=== PATIENT | male | born 1955 | race African-American/Black ===

== ENCOUNTER 2017-03-25 05:41 | Emergency (ER) | payer MEDICAID ==
[~2017-03-25] VITALS: Ht 198.1 cm; Wt 102.5 kg
[2017-03-25] MEDS ORDERED: OXYCODONE HCL 20MG TABLET SR 12HR PO ONE (06:30)
[2017-03-25] MEDS ORDERED: BACLOFEN 10MG TABLET PO ONE (06:30)
[2017-03-25 06:58] LABS: BASOPHILS % 0.8 % (0.0-2.0); EOSINOPHILS % 4.5 % (0.0-5.0); HEMATOCRIT. 36.2 % (42.0-52.0); HEMOGLOBIN. 12.2 g/dL (14.0-18.0); LYMPHOCYTES % 39.3 % (20.0-50.0); MEAN CORPUSCULAR HEMOGLOBIN 33.6 pg (28.0-32.0); MEAN CORPUSCULAR VOLUME 99.4 fL (80.0-94.0); MEAN PLATELET VOLUME 8.1 fl (7.4-10.4); MONOCYTES % 9.2 % (2.0-8.0); NEUTROPHILS % 46.2 % (40.0-76.0); PLATELET 173 x1000/uL (130-400); RED BLOOD CELL COUNT 3.64 mill/uL (4.7-6.1); RED CELL DISTRIBUTION WIDTH 15.5 % (11.6-14.6)
[2017-03-25 07:03] LABS: INR 0.9; PROTHROMBIN TIME 9.7 sec (9.4-11.6)
[2017-03-25 07:11] LABS: CARBON DIOXIDE 25 mEq/L (21-32); CHLORIDE 106 mEq/L (98-107); TROPONIN I < 0.02 ng/mL (0.00-0.04)
[2017-03-25 07:33] VITALS: BP 137/74
== END 2017-03-25 08:13 | disposition home or self-care (01) ==
LOC: ER 06:44
DX: G89.4 Chronic pain syndrome (principal); R21 Rash and other nonspecific skin eruption; F17.200 Nicotine dependence, unspecified, uncomplicated; I10 Essential (primary) hypertension
CPT/HCPCS: 36415; 80053; 83880; 84484; 85025; 85610; 93005; 99285; Z7610

== ENCOUNTER 2017-05-07 17:37 | Emergency (ER) | payer MEDICAID ==
[~2017-05-07] VITALS: Ht 198.1 cm; Wt 103.0 kg
[2017-05-07 17:57] VITALS: BP 155/106
== END 2017-05-07 21:41 | disposition left against medical advice (07) ==
LOC: ER 17:45
DX: R50.9 Fever, unspecified (principal); Z53.21 Procedure and treatment not carried out due to patient leaving prior to being seen by health care provider

== ENCOUNTER 2017-05-08 05:40 | Emergency (ER) | payer MEDICAID ==
[~2017-05-08] VITALS: Ht 198.1 cm; Wt 103.0 kg
[2017-05-08] MEDS ORDERED: MORPHINE SULFATE 4 MG/ML CPJ (NOT FOR IM USE) IV STA (06:46)
[2017-05-08] MEDS ORDERED: ONDANSETRON HCL 4MG/2ML VIAL IV STA (06:46)
[2017-05-08] MEDS ORDERED: CLONIDINE 0.1MG TABLET PO ONE (07:00)
[2017-05-08 07:05] LABS: BASOPHILS % 0.7 % (0.0-2.0); EOSINOPHILS % 1.1 % (0.0-5.0); HEMOGLOBIN. 12.4 g/dL (14.0-18.0); MEAN CORPUSCULAR VOLUME 100.9 fL (80.0-94.0); MONOCYTES % 7.8 % (2.0-8.0); NEUTROPHILS % 71.4 % (40.0-76.0); PLATELET 187 x1000/uL (130-400); RED BLOOD CELL COUNT 3.66 mill/uL (4.7-6.1); RED CELL DISTRIBUTION WIDTH 15.1 % (11.6-14.6)
[2017-05-08 07:16] LABS: INR 0.9; PROTHROMBIN TIME 9.6 sec (9.4-11.6)
[2017-05-08 07:18] LABS: CARBON DIOXIDE 28 mEq/L (21-32); CHLORIDE 104 mEq/L (98-107)
[2017-05-08] MEDS ORDERED: HYDROCODONE/ACETAMINOPHEN 5/325MG TABLET PO ONE (08:30)
[2017-05-08 08:48] VITALS: BP 135/77
== END 2017-05-08 08:50 | disposition home or self-care (01) ==
LOC: ER 05:40
DX: S52.615A Nondisplaced fracture of left ulna styloid process, initial encounter for closed fracture (principal); M54.5 Low back pain; M54.2 Cervicalgia; F17.200 Nicotine dependence, unspecified, uncomplicated; I10 Essential (primary) hypertension; V89.9XXA Person injured in unspecified vehicle accident, initial encounter; Y93.89 Activity, other specified; Y92.89 Other specified places as the place of occurrence of the external cause; Y99.8 Other external cause status
CPT/HCPCS: 29105; 36415; 72070; 72100; 73080; 80053; 83605; 85025; 85610; 93005; 96374; 96375; 99285; J2270; J2405; Z7610; A4565

== ENCOUNTER 2017-06-16 09:12 | Emergency (ER) | payer MEDICAID ==
[~2017-06-16] VITALS: Ht 198.1 cm; Wt 105.0 kg
[2017-06-16] MEDS ORDERED: HYDROCODONE/ACETAMINOPHEN 10/325MG TABLET PO ONE (10:30)
[2017-06-16] MEDS ORDERED: MORPHINE SULFATE 10 MG/ML CPJ IM ONE (10:45)
[2017-06-16 11:15] VITALS: BP 169/105
== END 2017-06-16 11:23 | disposition home or self-care (01) ==
LOC: ER 09:37
DX: R07.9 Chest pain, unspecified (principal); M54.2 Cervicalgia; M54.9 Dorsalgia, unspecified; M25.522 Pain in left elbow; I10 Essential (primary) hypertension
CPT/HCPCS: 93005; 99283; Z7610

== ENCOUNTER 2017-11-25 16:17 | Emergency (ER) | payer MEDICAID, OTHER ==
[~2017-11-25] VITALS: Ht 198.1 cm; Wt 105.0 kg
[2017-11-25] MEDS ORDERED: METHYLPREDNISOLONE SOD SUCC 125 MG/2 ML VIAL IV ONE ×2 (16:45→17:15)
[2017-11-25] MEDS ORDERED: DIPHENHYDRAMINE 50MG CAPSULE PO ONE (16:45)
[2017-11-25] MEDS ORDERED: DIPHENHYDRAMINE 50MG/ML VIAL IV ONE (17:15)
[2017-11-25 19:32] VITALS: BP 157/90
== END 2017-11-25 19:46 | disposition home or self-care (01) ==
LOC: ER 16:17
DX: T78.40XA Allergy, unspecified, initial encounter (principal); I10 Essential (primary) hypertension; X58.XXXA Exposure to other specified factors, initial encounter
CPT/HCPCS: 93005; 96374; 96375; 96376; 99284; J1200; J2930; J7030; Z7610; Q0163

== ENCOUNTER 2017-12-24 18:07 | Emergency (ER) | payer MEDICAID ==
[~2017-12-24] VITALS: Ht 195.6 cm; Wt 120.0 kg
[2017-12-24 18:11] VITALS: BP 113/71
[2017-12-24] MEDS ORDERED: LIDOCAINE 5% PATCH TOP STA (18:28)
[2017-12-24] MEDS ORDERED: SODIUM CHLORIDE 0.9% 1,000 ML IV ONE (18:28)
[2017-12-24] MEDS ORDERED: ACETAMINOPHEN 325MG TABLET PO ONE (18:30)
[2017-12-24] MEDS ORDERED: IBUPROFEN 400MG TABLET PO ONE (18:30)
== END 2017-12-25 00:15 | disposition left against medical advice (07) ==
LOC: ER 20:30
DX: R07.81 Pleurodynia (principal); I10 Essential (primary) hypertension; Z98.890 Other specified postprocedural states
CPT/HCPCS: 99281; J7030

== ENCOUNTER 2018-05-04 07:31 | Emergency (ER) | payer MEDICAID ==
[~2018-05-04] VITALS: Ht 198.1 cm; Wt 105.0 kg
[2018-05-04] MEDS ORDERED: QUET25TA PO (07:41)
[2018-05-04] MEDS ORDERED: TETANUS, DIPHTHERIA, PERTUSSIS VAC/PF 0.5ML (>7YR OLD) IM ONE (10:00)
[2018-05-04] MEDS ORDERED: HYDROCODONE/ACETAMINOPHEN 5/325MG TABLET PO ONE (10:30)
[2018-05-04 10:33] VITALS: BP 186/98
== END 2018-05-04 12:40 | disposition home or self-care (01) ==
LOC: ER 08:33
DX: S09.8XXA Other specified injuries of head, initial encounter (principal); M54.2 Cervicalgia; I95.9 Hypotension, unspecified; M25.512 Pain in left shoulder; M79.641 Pain in right hand; M25.561 Pain in right knee; W10.8XXA Fall (on) (from) other stairs and steps, initial encounter; Y93.89 Activity, other specified; Y92.89 Other specified places as the place of occurrence of the external cause; Y99.8 Other external cause status; Z98.890 Other specified postprocedural states
CPT/HCPCS: 70450; 72100; 72125; 73030; 73130; 73562; 90471; 90715; 99284; X7700; Z7610

== ENCOUNTER 2019-12-18 20:44 | Inpatient (IN) | payer MEDICAID, OTHER ==
[~2019-12-18] VITALS: Ht 198.1 cm; Wt 96.2 kg
[~2019-12-18 20:44] MED LIST: QUET25TA PO
[2019-12-18 22:00] LABS: CHLORIDE 103 mEq/L (98-107)
[2019-12-18 22:01] LABS: BASOPHILS % 1.4 % (0.0-2.0); EOSINOPHILS % 0.6 % (0.0-5.0); HEMATOCRIT. 43.8 % (42.0-52.0); HEMOGLOBIN. 14.9 g/dL (14.0-18.0); LYMPHOCYTES % 22.4 % (20.0-50.0); MEAN CORPUSCULAR HEMOGLOBIN 36.1 pg (28.0-32.0); MEAN CORPUSCULAR VOLUME 106.2 fL (80.0-94.0); MEAN PLATELET VOLUME 7.6 fl (7.4-10.4); MONOCYTES % 8.4 % (2.0-8.0); NEUTROPHILS % 67.2 % (40.0-76.0); PLATELET 141 x1000/uL (130-400); RED BLOOD CELL COUNT 4.13 mill/uL (4.7-6.1); RED CELL DISTRIBUTION WIDTH 15.3 % (11.6-14.6)
[2019-12-18 22:02] LABS: INR 0.9
[2019-12-18 23:25] LABS: CLARITY URINE CLEAR (CLEAR); COLOR URINE DARK YELLOW (YELLOW); KETONES URINE 1+ (NEGATIVE); LEUKOCYTE ESTERASE URINE 1+ (NEGATIVE); NITRITE URINE NEGATIVE (NEGATIVE); OCCULT BLOOD URINE TRACE (NEGATIVE); PH URINE 7.5 (4.5-8.0); PROTEIN URINE 1+ (NEGATIVE); SPECIFIC GRAVITY URINE 1.025 (1.005-1.030)
[2019-12-19] MEDS ORDERED: IOHEXOL-350 100 ML BOTTLE ONE (00:40)
[2019-12-19] MEDS ORDERED: ENOXAPARIN 100MG/ML SYR SUBCUT NR (01:30)
[2019-12-19 02:03] LABS: INR 0.9
[2019-12-19] MEDS ORDERED: KETOROLAC 15MG/ML VIAL IV ONE (02:45)
[2019-12-19] MEDS ORDERED: MORPHINE SULFATE 4 MG/ML CPJ (NOT FOR IM USE) IV PRN (05:30)
[2019-12-19] MEDS ORDERED: ACETAMINOPHEN 325MG TABLET PO PRN ×2 (09:00→09:15)
[2019-12-19] MEDS ORDERED: HYDRALAZINE 20MG/ML VIAL IV NR ×2 (09:00→09:30)
[2019-12-19] MEDS ORDERED: AZITHROMYCIN 500 MG TABLET PO NR (09:30)
[2019-12-19 09:52] VITALS: BP 214/94
[2019-12-19] MEDS ORDERED: LORAZEPAM 2MG/ML CPJ IV PRN (10:30)
[2019-12-19] MEDS ORDERED: AMLODIPINE 5MG TABLET PO NR (10:30)
[2019-12-19 10:40] VITALS: BP 164/94
[2019-12-19] MEDS ORDERED: CEFTRIAXONE 1 G PREMIX 50 ML IV SCH (11:00)
[2019-12-19] MEDS: MULTIVITAMINS,THER W-MINERALS TABLET PO SCH (11:00)
[2019-12-19] MEDS: THIAMINE HCL 100MG TABLET PO SCH (11:00)
[2019-12-19] MEDS: FOLIC ACID 1MG TABLET PO SCH (11:00)
[2019-12-19 12:16] VITALS: BP 196/87
[2019-12-19] MEDS: PANTOPRAZOLE SODIUM 40 MG/VIAL IV SCH (12:21)
[2019-12-19] MEDS: HYDROCODONE/ACETAMINOPHEN 5/325MG TABLET PO PRN ×2 (12:21→18:15)
[2019-12-19] MEDS ORDERED: HYDRALAZINE HCL 50MG TABLET PO NR (12:30)
[2019-12-19] MEDS: ENOXAPARIN 100MG/ML SYR SUBCUT SCH (13:48)
[2019-12-19 14:38] LABS: *BARBITURATES SCREEN URINE NEGATIVE (NEGATIVE); *BENZODIAZEPINES SCREEN URINE NEGATIVE (NEGATIVE); *COCAINE SCREEN URINE PRESUMTIVE POSITIVE (NEGATIVE)
[2019-12-19 14:39] LABS: *AMPHETAMINES SCREEN URINE PRESUMTIVE POSITIVE (NEGATIVE); OPIATES URINE SCREEN NEGATIVE (NEGATIVE); PHENCYCLIDINE URINE SCREEN NEGATIVE (NEGATIVE)
[2019-12-19 14:41] LABS: CANNABINOID URINE SCREEN NEGATIVE (NEGATIVE); METHADONE URINE SCREEN NEGATIVE (NEGATIVE)
[2019-12-19 16:36] VITALS: BP 168/93
[2019-12-19] MEDS: CEFTRIAXONE 1 G PREMIX 50 ML IV SCH (17:52)
[2019-12-19 18:14] LABS: LDL CHOLESTEROL 36 mg/dL (5-100)
[2019-12-19 18:16] LABS: HDL CHOLESTEROL 92 mg/dL (40-59)
[2019-12-19] MEDS ORDERED: LOSARTAN POTASSIUM 50 MG TABLET PO NR (19:00)
[2019-12-19 20:00] VITALS: BP 140/77
[2019-12-19] MEDS ORDERED: HYDRALAZINE HCL 50MG TABLET PO SCH (21:00)
[2019-12-19] MEDS: AMLODIPINE 5MG TABLET PO SCH (21:45)
[2019-12-19] MEDS: HYDRALAZINE HCL 100MG TABLET PO SCH (21:45)
[2019-12-19 22:02] LABS: *AMPHETAMINES SCREEN URINE PRESUMTIVE POSITIVE (NEGATIVE); *BARBITURATES SCREEN URINE NEGATIVE (NEGATIVE); *BENZODIAZEPINES SCREEN URINE NEGATIVE (NEGATIVE); *COCAINE SCREEN URINE PRESUMTIVE POSITIVE (NEGATIVE); CANNABINOID URINE SCREEN NEGATIVE (NEGATIVE); METHADONE URINE SCREEN NEGATIVE (NEGATIVE); OPIATES URINE SCREEN PRESUMTIVE POSITIVE (NEGATIVE); PHENCYCLIDINE URINE SCREEN NEGATIVE (NEGATIVE)
[2019-12-20] VITALS: BP 138/74
[2019-12-20] MEDS: HYDROCODONE/ACETAMINOPHEN 5/325MG TABLET PO PRN ×2 (00:08→22:10)
[2019-12-20] MEDS: ENOXAPARIN 100MG/ML SYR SUBCUT SCH ×2 (02:00→13:22)
[2019-12-20 04:00] VITALS: BP 145/70
[2019-12-20 08:00] VITALS: BP 137/70
[2019-12-20] MEDS ORDERED: AZITHROMYCIN 250 MG TABLET PO SCH (09:00)
[2019-12-20] MEDS: AMLODIPINE 5MG TABLET PO SCH ×2 (09:22→21:00)
[2019-12-20] MEDS: PANTOPRAZOLE SODIUM 40 MG/VIAL IV SCH (09:22)
[2019-12-20] MEDS: MULTIVITAMINS,THER W-MINERALS TABLET PO SCH (09:22)
[2019-12-20] MEDS: HYDRALAZINE HCL 100MG TABLET PO SCH ×2 (09:23→21:00)
[2019-12-20] MEDS: THIAMINE HCL 100MG TABLET PO SCH (09:23)
[2019-12-20] MEDS: FOLIC ACID 1MG TABLET PO SCH (09:23)
[2019-12-20] MEDS ORDERED: THIA100T88 MT (10:27)
[2019-12-20] MEDS ORDERED: FOLI-43 PO (10:27)
[2019-12-20] MEDS ORDERED: HYDR100T26 PO (10:27)
[2019-12-20] MEDS ORDERED: AMLO5TAB88 PO (10:28)
[2019-12-20] MEDS ORDERED: KETOROLAC 30MG/ML VIAL IV PRN (10:45)
[2019-12-20] MEDS ORDERED: IPRATROPIUM/ALBUTEROL 0.5-3(2.5)MG/3ML NEB HHN PRN ×2 (13:00→15:30)
[2019-12-20 16:00] VITALS: BP 123/59
[2019-12-20] MEDS: CEFTRIAXONE 1 G PREMIX 50 ML IV SCH (17:11)
[2019-12-20 20:00] VITALS: BP 109/59
[2019-12-20] MEDS ORDERED: QUETIAPINE FUMARATE 25MG TABLET PO SCH (21:00)
[2019-12-21] MEDS ORDERED: FAMOTIDINE 20MG TABLET PO SCH (09:00)
== END 2019-12-20 23:40 | disposition left against medical advice (07) | DRG 134 ==
LOC: ER 20:44 → 7EST 12-19 01:23 → ENRESERV 12-19 07:48 → ER 12-19 08:30 → 5WST 12-20 04:45
PROVIDERS: ADMIT Internal Medicine; ATTEND Internal Medicine
DX: I26.99 Other pulmonary embolism without acute cor pulmonale (principal); E44.1 Mild protein-calorie malnutrition; R17 Unspecified jaundice; J43.9 Emphysema, unspecified; K21.9 Gastro-esophageal reflux disease without esophagitis; I10 Essential (primary) hypertension; R00.1 Bradycardia, unspecified; F10.10 Alcohol abuse, uncomplicated; Y90.9 Presence of alcohol in blood, level not specified; R74.0 Nonspecific elevation of levels of transaminase and lactic acid dehydrogenase [LDH]; D72.819 Decreased white blood cell count, unspecified; G89.4 Chronic pain syndrome; M54.10 Radiculopathy, site unspecified; M54.14 Radiculopathy, thoracic region; F17.210 Nicotine dependence, cigarettes, uncomplicated; Z20.828 Contact with and (suspected) exposure to other viral communicable diseases; Z53.29 Procedure and treatment not carried out because of patient's decision for other reasons; Z98.1 Arthrodesis status; Z79.899 Other long term (current) drug therapy; Z86.718 Personal history of other venous thrombosis and embolism; Z68.24 Body mass index [BMI] 24.0-24.9, adult; Z71.41 Alcohol abuse counseling and surveillance of alcoholic
CPT/HCPCS: 36415; 71045; 71275; 80053; 80061; 80305; 80307; 80353; 81003; 82728; 83615; 83880; 84145; 84443; 84484; 85025; 86140; 93005; 93306; 99291; C9113; J0360; J0696; J1650; J1885; J2270; Q9967; U0003-CS

== ENCOUNTER 2020-05-30 15:36 | Emergency (ER) | payer OTHER ==
[~2020-05-30] VITALS: Ht 198.1 cm; Wt 102.0 kg
[~2020-05-30 15:36] MED LIST changes: +AMLO5TAB88 PO; +FOLI-43 PO; +HYDR100T26 PO; +THIA100T88 MT
[2020-05-30] MEDS ORDERED: MORPHINE SULFATE 4 MG/ML CPJ (NOT FOR IM USE) IV STA (18:21)
[2020-05-30] MEDS ORDERED: ONDANSETRON HCL 4MG/2ML INJ IV STA (18:21)
[2020-05-30 18:29] LABS: BASOPHILS % 0.7 % (0.0-2.0); EOSINOPHILS % 2.4 % (0.0-5.0); HEMATOCRIT. 38.4 % (42.0-52.0); HEMOGLOBIN. 12.9 g/dL (14.0-18.0); LYMPHOCYTES % 34.4 % (20.0-50.0); MEAN CORPUSCULAR HEMOGLOBIN 36.8 pg (28.0-32.0); MEAN CORPUSCULAR VOLUME 109.3 fL (80.0-94.0); MONOCYTES % 8.8 % (2.0-8.0); NEUTROPHILS % 53.7 % (40.0-76.0); PLATELET 247 x1000/uL (130-400); RED BLOOD CELL COUNT 3.52 mill/uL (4.7-6.1); RED CELL DISTRIBUTION WIDTH 15.5 % (11.6-14.6)
[2020-05-30 18:34] LABS: CHLORIDE 108 mEq/L (98-107)
[2020-05-30 18:37] LABS: PROTHROMBIN TIME 10.3 sec (9.6-11.0)
[2020-05-30] MEDS ORDERED: SODIUM CHLORIDE 0.9% 1000ML BAG (SEPSIS BOLUS) IV NR (20:30)
[2020-05-30] MEDS ORDERED: VANCOMYCIN 1 G PREMIX 200 ML IV NR (20:30)
[2020-05-30] MEDS ORDERED: PIPERACILLIN/TAZ 3.375G PREMIX 50 ML IV NR (20:30)
[2020-05-30] MEDS ORDERED: PIPERACILLIN/TAZOBACTAM 3.375 G in DEXT 5% WATER 100 ML IV SCH (21:15)
[2020-05-30 22:00] VITALS: BP 154/75
[2020-05-30 23:17] LABS: CLARITY URINE CLEAR (CLEAR); COLOR URINE YELLOW (YELLOW); KETONES URINE NEGATIVE (NEGATIVE); LEUKOCYTE ESTERASE URINE TRACE (NEGATIVE); NITRITE URINE NEGATIVE (NEGATIVE); OCCULT BLOOD URINE NEGATIVE (NEGATIVE); PH URINE 7.5 (4.5-8.0); PROTEIN URINE NEGATIVE (NEGATIVE); SPECIFIC GRAVITY URINE 1.012 (1.005-1.030); UROBILINOGEN URINE 0.2 E.U./dL (0.2-1.0)
== END 2020-05-31 00:21 | disposition left against medical advice (07) ==
LOC: ER 16:07 → CANBEDREQ 05-31 01:54
DX: A41.9 Sepsis, unspecified organism (principal); R65.20 Severe sepsis without septic shock; J18.9 Pneumonia, unspecified organism; R00.1 Bradycardia, unspecified; M54.5 Low back pain; I10 Essential (primary) hypertension; F17.210 Nicotine dependence, cigarettes, uncomplicated; Z71.6 Tobacco abuse counseling; Z98.1 Arthrodesis status; Z99.3 Dependence on wheelchair
CPT/HCPCS: 36415; 71045; 72125; 80053; 81003; 82962; 83605; 83880; 84145; 84484; 85025; 85610; 87040; 87086; 93005; 96361; 96365; 96367; 96375; 99285; 99406; J2270; J2405; J2543; J3370; J7060

== ENCOUNTER 2020-08-17 12:02 | Emergency (ER) | payer OTHER ==
[~2020-08-17] VITALS: Ht 198.1 cm; Wt 102.0 kg
[2020-08-17 14:31] LABS: BASOPHILS % 0.6 % (0.0-2.0); EOSINOPHILS % 1.3 % (0.0-5.0); HEMATOCRIT. 38.5 % (42.0-52.0); HEMOGLOBIN. 12.7 g/dL (14.0-18.0); LYMPHOCYTES % 26.9 % (20.0-50.0); MEAN CORPUSCULAR HEMOGLOBIN 35.8 pg (28.0-32.0); MEAN CORPUSCULAR VOLUME 108.4 fL (80.0-94.0); MEAN PLATELET VOLUME 8.9 fl (7.4-10.4); NEUTROPHILS % 61.2 % (40.0-76.0); PLATELET 78 x1000/uL (130-400); RED BLOOD CELL COUNT 3.55 mill/uL (4.7-6.1); RED CELL DISTRIBUTION WIDTH 16.8 % (11.6-14.6)
[2020-08-17 14:42] LABS: CHLORIDE 103 mEq/L (98-107)
[2020-08-17] MEDS ORDERED: MORPHINE SULFATE 10 MG/ML CPJ IV ONE (15:00)
[2020-08-17] MEDS ORDERED: MORPHINE SULFATE 10 MG/ML CPJ IV NR (15:15)
[2020-08-17] MEDS ORDERED: ENOXAPARIN 120MG/0.8ML SYR SUBCUT ONE (17:45)
[2020-08-17 18:01] VITALS: BP 153/65
[2020-08-17] MEDS ORDERED: IOHEXOL-350 100 ML BOTTLE ONE (23:15)
== END 2020-08-17 18:03 | disposition home or self-care (01) ==
LOC: ER 12:02
DX: R07.89 Other chest pain (principal); I82.402 Acute embolism and thrombosis of unspecified deep veins of left lower extremity; M54.2 Cervicalgia; I10 Essential (primary) hypertension; Z98.890 Other specified postprocedural states
CPT/HCPCS: 36415; 71045; 71275; 72125; 80053; 83880; 84484; 85025; 93005; 93970; 96374; 99285; J1650; J2270; Q9967

== ENCOUNTER 2021-01-11 15:16 | Emergency (ER) | payer OTHER ==
[~2021-01-11] VITALS: Ht 193 cm; Wt 100.0 kg
[2021-01-11] MEDS ORDERED: ACETAMINOPHEN WITH CODEINE 300/30MG TABLET PO STA (16:29)
[2021-01-11 17:07] LABS: BASOPHILS % 0.8 % (0.0-2.0); EOSINOPHILS % 0.1 % (0.0-5.0); HEMATOCRIT. 37.5 % (42.0-52.0); HEMOGLOBIN. 12.7 g/dL (14.0-18.0); LYMPHOCYTES % 7.4 % (20.0-50.0); MEAN CORPUSCULAR HEMOGLOBIN 36.8 pg (28.0-32.0); MEAN CORPUSCULAR VOLUME 108.5 fL (80.0-94.0); MEAN PLATELET VOLUME 8.5 fl (7.4-10.4); MONOCYTES % 6.3 % (2.0-8.0); NEUTROPHILS % 85.4 % (40.0-76.0); PLATELET 95 x1000/uL (130-400); RED BLOOD CELL COUNT 3.46 mill/uL (4.7-6.1); RED CELL DISTRIBUTION WIDTH 16.9 % (11.6-14.6)
[2021-01-11 17:13] LABS: CHLORIDE 100 mEq/L (98-107)
[2021-01-11] MEDS ORDERED: TAMS-11 MT (19:26)
[2021-01-11] MEDS ORDERED: CIPR-264 MT (19:27)
[2021-01-12 00:05] VITALS: BP 149/75
== END 2021-01-12 00:20 | disposition home or self-care (01) ==
LOC: ER 15:16
DX: N30.00 Acute cystitis without hematuria (principal); N40.0 Benign prostatic hyperplasia without lower urinary tract symptoms; F17.200 Nicotine dependence, unspecified, uncomplicated; I10 Essential (primary) hypertension; Z98.890 Other specified postprocedural states; Z79.899 Other long term (current) drug therapy
CPT/HCPCS: 36415; 74176; 80053; 85025; 99285; Z7610

== ENCOUNTER 2021-03-15 04:50 | Inpatient (IN) | payer MEDICAID, OTHER ==
[~2021-03-15] VITALS: Ht 198.1 cm; Wt 88.0 kg
[~2021-03-15 04:50] MED LIST changes: +CIPR-264 MT; +TAMS-11 MT
[2021-03-15 06:20] LABS: HEMATOCRIT. 35.9 % (42.0-52.0); HEMOGLOBIN. 12.2 g/dL (14.0-18.0); MEAN CORPUSCULAR HEMOGLOBIN 35.4 pg (28.0-32.0); MEAN CORPUSCULAR VOLUME 104.2 fL (80.0-94.0); MEAN PLATELET VOLUME 8.1 fl (7.4-10.4); PLATELET 330 x1000/uL (130-400); RED BLOOD CELL COUNT 3.44 mill/uL (4.7-6.1); RED CELL DISTRIBUTION WIDTH 18.2 % (11.6-14.6)
[2021-03-15 06:26] LABS: CHLORIDE 100 mEq/L (98-107)
[2021-03-15] MEDS ORDERED: CEFTRIAXONE 1 G PREMIX 50 ML IV ONE (07:15)
[2021-03-15] MEDS ORDERED: AZITHROMYCIN 500 MG in DEXT 5% WATER 250 ML IV ONE (07:15)
[2021-03-15] MEDS ORDERED: DEXAMETHASONE 10 MG/ML VIAL IV ONE (07:15)
[2021-03-15] MEDS ORDERED: IPRATROPIUM BROMIDE (0.02%) 0.5MG/2.5ML NEB HHN STA (07:48)
[2021-03-15] MEDS ORDERED: ALBUTEROL (0.083%) 2.5MG/3ML NEB HHN STA (07:48)
[2021-03-15] MEDS ORDERED: ONDANSETRON HCL 4MG/2ML INJ IV ONE (08:00)
[2021-03-15 08:08] LABS: PLATELET ESTIMATE NORMAL
[2021-03-15 08:09] LABS: D-DIMER 14.46 mg/L FEU (<0.50)
[2021-03-15] MEDS ORDERED: HYDROCODONE/ACETAMINOPHEN 5/325MG TABLET PO ONE (08:30)
[2021-03-15 08:45] LABS: BG BASE EXCESS 2.6 mmol/L (-2.0-2.0); BG CARBOXYHEMOGLOBIN 0.9 % (0.5-1.5); BG DEOXYHEMOGLOBIN 9.4 % (0.0-5.0); BG HCO3 ACT 25.6 mmol/L (22.0-26.0); BG METHEMOGLOBIN 0.3 % (0.0-1.5); BG OXYGEN SATURATION 90.5 % (92.0-98.5); BG OXYHEMOGLOBIN 89.4 % (94.0-97.0); BG PCO2 34.4 mmHg (35.0-45.0); BG PO2 58.7 mmHg (75.0-100.0); BG SAMPLE SITE RIGHT RADIAL; BG TOTAL HEMOGLOBIN 12.7 g/dL (12.0-18.0); BG VENT MODE NASAL CANNULA
[2021-03-15] MEDS ORDERED: POTASSIUM CHLORIDE 20MEQ TABLET SR PO ONE (09:15)
[2021-03-15] MEDS ORDERED: ONDANSETRON HCL 4MG/2ML INJ IV PRN (14:15)
[2021-03-15] MEDS ORDERED: ACETAMINOPHEN 325MG TABLET PO PRN (14:15)
[2021-03-15] MEDS: HYDROCODONE/ACETAMINOPHEN 5/325MG TABLET PO PRN ×2 (14:58→21:12)
[2021-03-15] MEDS: ENOXAPARIN 40MG/0.4ML SYR SUBCUT SCH (15:04)
[2021-03-15 16:00] VITALS: BP 112/69
[2021-03-15 20:00] VITALS: BP 101/65
[2021-03-16] VITALS (7 sets, daily range): BP systolic 95–123; BP diastolic 60–74
[2021-03-16] MEDS: HYDROCODONE/ACETAMINOPHEN 5/325MG TABLET PO PRN ×3 (01:45→19:23)
[2021-03-16] MEDS ORDERED: DEXAMETHASONE 4MG TABLET PO SCH (09:00)
[2021-03-16] MEDS: AZITHROMYCIN 250 MG TABLET PO SCH ×2 (09:00→13:55)
[2021-03-16] MEDS ORDERED: CEFTRIAXONE 1,000 MG in DEXTROSE 5% WATER 50 ML IV SCH (09:00)
[2021-03-16] MEDS ORDERED: NALOXONE HCL 0.4MG/ML VIAL IV PRN (12:00)
[2021-03-16] MEDS ORDERED: DEXAMETHASONE 6MG TABLET PO SCH (13:00)
[2021-03-16] MEDS: ENOXAPARIN 40MG/0.4ML SYR SUBCUT SCH (13:54)
[2021-03-16] MEDS ORDERED: IPRATROPIUM/ALBUTEROL 0.5-3(2.5)MG/3ML NEB HHN PRN (16:15)
[2021-03-16 18:41] LABS: BG BASE EXCESS 3.3 mmol/L (-2.0-2.0); BG CARBOXYHEMOGLOBIN 0.3 % (0.5-1.5); BG DEOXYHEMOGLOBIN 10.7 % (0.0-5.0); BG FRACTION INSPIRED OXYGEN 21; BG METHEMOGLOBIN 0.1 % (0.0-1.5); BG OXYGEN SATURATION 89.3 % (92.0-98.5); BG OXYHEMOGLOBIN 88.9 % (94.0-97.0); BG PCO2 37.9 mmHg (35.0-45.0); BG PO2 57.4 mmHg (75.0-100.0); BG SAMPLE SITE LEFT RADIAL; BG TOTAL HEMOGLOBIN 12.5 g/dL (12.0-18.0); BG VENT MODE ROOM AIR
[2021-03-17] VITALS (27 sets, daily range): BP systolic 101–145; BP diastolic 54–77
[2021-03-17] MEDS: CEFTRIAXONE 1,000 MG in DEXTROSE 5% WATER 50 ML IV SCH (09:46)
[2021-03-17] MEDS: HYDROCODONE/ACETAMINOPHEN 5/325MG TABLET PO PRN ×2 (10:53→21:11)
[2021-03-17] MEDS ORDERED: ENOXAPARIN 100MG/ML SYR SUBCUT SCH (13:00)
[2021-03-17] MEDS ORDERED: POTASSIUM CHLORIDE 20MEQ TABLET SR PO NR (13:15)
[2021-03-17 16:23] LABS: *AMPHETAMINES SCREEN URINE NEGATIVE (NEGATIVE); *BARBITURATES SCREEN URINE NEGATIVE (NEGATIVE); *BENZODIAZEPINES SCREEN URINE NEGATIVE (NEGATIVE); CANNABINOID URINE SCREEN NEGATIVE (NEGATIVE); OPIATES URINE SCREEN PRESUMTIVE POSITIVE (NEGATIVE); PHENCYCLIDINE URINE SCREEN PRESUMTIVE POSITIVE (NEGATIVE)
[2021-03-17 16:24] LABS: *COCAINE SCREEN URINE NEGATIVE (NEGATIVE); METHADONE URINE SCREEN NEGATIVE (NEGATIVE)
[2021-03-17 17:11] LABS: BASOPHILS % 0.2 % (0.0-2.0); EOSINOPHILS % 0.1 % (0.0-5.0); HEMATOCRIT. 31.3 % (42.0-52.0); HEMOGLOBIN. 10.4 g/dL (14.0-18.0); LYMPHOCYTES % 9.9 % (20.0-50.0); MEAN CORPUSCULAR HEMOGLOBIN 35.4 pg (28.0-32.0); MEAN CORPUSCULAR VOLUME 106.3 fL (80.0-94.0); MEAN PLATELET VOLUME 8.2 fl (7.4-10.4); MONOCYTES % 7.1 % (2.0-8.0); NEUTROPHILS % 82.7 % (40.0-76.0); PLATELET 413 x1000/uL (130-400); RED BLOOD CELL COUNT 2.95 mill/uL (4.7-6.1); RED CELL DISTRIBUTION WIDTH 18.2 % (11.6-14.6)
[2021-03-17] MEDS: DOBUTAMINE 250MG PREMIX 250 ML IV PRN (18:17)
[2021-03-17] MEDS ORDERED: MAGNESIUM 2 G PREMIX 50 ML IV NR (19:00)
[2021-03-17 19:52] LABS: INR 1.1; PROTHROMBIN TIME 11.3 sec (9.6-11.0)
[2021-03-17] MEDS ORDERED: HEPARIN 5000 UNITS/ML VIAL IV PRN (23:00)
[2021-03-18] VITALS (93 sets, daily range): BP systolic 79–168; BP diastolic 42–143
[2021-03-18] MEDS ORDERED: HEPARIN 25,000 UNITS PREMIX 250 ML IV SCH (03:00)
[2021-03-18] MEDS: HEPARIN 25,000 UNITS PREMIX 250 ML IV PRN (03:03)
[2021-03-18 05:31] LABS: CHLORIDE 106 mEq/L (98-107)
[2021-03-18 05:33] LABS: BASOPHILS % 0.3 % (0.0-2.0); EOSINOPHILS % 0.2 % (0.0-5.0); HEMATOCRIT. 32.6 % (42.0-52.0); HEMOGLOBIN. 10.7 g/dL (14.0-18.0); LYMPHOCYTES % 22.1 % (20.0-50.0); MEAN CORPUSCULAR HEMOGLOBIN 34.7 pg (28.0-32.0); MEAN PLATELET VOLUME 8.3 fl (7.4-10.4); MONOCYTES % 10.6 % (2.0-8.0); NEUTROPHILS % 66.8 % (40.0-76.0); PLATELET 433 x1000/uL (130-400); RED BLOOD CELL COUNT 3.08 mill/uL (4.7-6.1); RED CELL DISTRIBUTION WIDTH 18.8 % (11.6-14.6)
[2021-03-18 05:40] LABS: CREATINE KINASE 10 IU/L (39-308)
[2021-03-18 05:43] LABS: CREATINE KINASE MB FRACTION < 1.0 ng/mL (0.5-3.6)
[2021-03-18] MEDS: HYDROCODONE/ACETAMINOPHEN 5/325MG TABLET PO PRN ×4 (08:01→22:31)
[2021-03-18 10:19] LABS: BG BASE EXCESS 1.6 mmol/L (-2.0-2.0); BG CARBOXYHEMOGLOBIN 0.1 % (0.5-1.5); BG DEOXYHEMOGLOBIN 4.2 % (0.0-5.0); BG FRACTION INSPIRED OXYGEN 28; BG HCO3 ACT 25.8 mmol/L (22.0-26.0); BG METHEMOGLOBIN 0.3 % (0.0-1.5); BG OXYGEN SATURATION 95.8 % (92.0-98.5); BG OXYHEMOGLOBIN 95.4 % (94.0-97.0); BG PCO2 38.8 mmHg (35.0-45.0); BG PO2 84.9 mmHg (75.0-100.0); BG SAMPLE SITE RIGHT BRACHIAL; BG TOTAL HEMOGLOBIN 11.5 g/dL (12.0-18.0); BG VENT MODE NASAL CANNULA
[2021-03-18 10:19] LABS: PARTIAL THROMBOPLASTIN TIME 32.8 sec (23.4-31.0); PROTHROMBIN TIME 10.9 sec (9.6-11.0)
[2021-03-18] MEDS ORDERED: IPRATROPIUM/ALBUTEROL 0.5-3(2.5)MG/3ML NEB HHN PRN (10:45)
[2021-03-18] MEDS: DOBUTAMINE 250MG PREMIX 250 ML IV PRN ×2 (11:09→18:35)
[2021-03-18] MEDS: AZITHROMYCIN 250 MG TABLET PO SCH (11:24)
[2021-03-18] MEDS: MAGNESIUM OXIDE 400MG TABLET PO SCH (11:25)
[2021-03-18] MEDS: HEPARIN 5000 UNITS/ML VIAL IV PRN ×2 (11:27→21:06)
[2021-03-18] MEDS: CEFTRIAXONE 1,000 MG in DEXTROSE 5% WATER 50 ML IV SCH (12:32)
[2021-03-18] MEDS ORDERED: IOHEXOL-350 100 ML BOTTLE ONE (17:29)
[2021-03-19] VITALS (53 sets, daily range): BP systolic 106–157; BP diastolic 42–120
[2021-03-19] MEDS: DOBUTAMINE 250MG PREMIX 250 ML IV PRN (01:07)
[2021-03-19] MEDS: HEPARIN 25,000 UNITS PREMIX 250 ML IV PRN (01:11)
[2021-03-19] MEDS: HYDROCODONE/ACETAMINOPHEN 5/325MG TABLET PO PRN ×5 (02:18→20:16)
[2021-03-19 05:41] LABS: BASOPHILS % 0.6 % (0.0-2.0); EOSINOPHILS % 0.9 % (0.0-5.0); HEMATOCRIT. 28.4 % (42.0-52.0); HEMOGLOBIN. 9.5 g/dL (14.0-18.0); LYMPHOCYTES % 22.2 % (20.0-50.0); MEAN CORPUSCULAR HEMOGLOBIN 35.3 pg (28.0-32.0); MEAN CORPUSCULAR VOLUME 106.1 fL (80.0-94.0); MEAN PLATELET VOLUME 8.2 fl (7.4-10.4); NEUTROPHILS % 64.3 % (40.0-76.0); PLATELET 400 x1000/uL (130-400); RED BLOOD CELL COUNT 2.67 mill/uL (4.7-6.1); RED CELL DISTRIBUTION WIDTH 18.8 % (11.6-14.6)
[2021-03-19 05:47] LABS: CHLORIDE 98 mEq/L (98-107)
[2021-03-19] MEDS ORDERED: DOBUTAMINE 250MG PREMIX 250 ML IV SCH (06:00)
[2021-03-19] MEDS: DOBUTAMINE 250MG PREMIX 250 ML IV SCH ×2 (07:04→18:34)
[2021-03-19] MEDS: THEOPHYLLINE ANHYDROUS 80 MG/15 ML 120ML PO SCH ×2 (08:06→14:23)
[2021-03-19] MEDS: ASCORBIC ACID 500 MG TABLET PO SCH (08:06)
[2021-03-19] MEDS: ZINC SULFATE 220 MG ( 50 ) CAPSULE PO SCH (08:06)
[2021-03-19] MEDS: MAGNESIUM OXIDE 400MG TABLET PO SCH (08:06)
[2021-03-19] MEDS: CEFTRIAXONE 1,000 MG in DEXTROSE 5% WATER 50 ML IV SCH (08:06)
[2021-03-19] MEDS: AZITHROMYCIN 250 MG TABLET PO SCH (08:08)
[2021-03-19 10:28] LABS: INR 1.1; PARTIAL THROMBOPLASTIN TIME 32.8 sec (23.4-31.0); PROTHROMBIN TIME 11.3 sec (9.6-11.0)
[2021-03-19] MEDS ORDERED: ENOXAPARIN 100MG/ML SYR SUBCUT SCH ×2 (12:00→23:00)
[2021-03-19] MEDS: PANTOPRAZOLE SODIUM 40 MG/VIAL IV SCH (15:16)
[2021-03-20] VITALS (8 sets, daily range): BP systolic 107–159; BP diastolic 59–103
[2021-03-20 06:15] LABS: CHLORIDE 107 mEq/L (98-107)
[2021-03-20 06:36] LABS: TOTAL IRON BINDING CAPACITY 162 ug/dL (250-450)
[2021-03-20 06:37] LABS: THEOPHYLLINE < 2.0 ug/mL (10-20)
[2021-03-20 06:52] LABS: FOLIC ACID (FOLATE) SERUM 4.8 ng/mL (>5.38)
[2021-03-20 07:25] LABS: HEMATOCRIT. 31.4 % (42.0-52.0); HEMOGLOBIN. 10.5 g/dL (14.0-18.0); MEAN CORPUSCULAR HEMOGLOBIN 35.3 pg (28.0-32.0); MEAN PLATELET VOLUME 7.9 fl (7.4-10.4); PLATELET 328 x1000/uL (130-400); RED BLOOD CELL COUNT 2.96 mill/uL (4.7-6.1); RED CELL DISTRIBUTION WIDTH 18.7 % (11.6-14.6)
[2021-03-20] MEDS: AZITHROMYCIN 250 MG TABLET PO SCH (08:57)
[2021-03-20] MEDS: MAGNESIUM OXIDE 400MG TABLET PO SCH (08:57)
[2021-03-20] MEDS: ASCORBIC ACID 500 MG TABLET PO SCH (08:57)
[2021-03-20] MEDS: CEFTRIAXONE 1,000 MG in DEXTROSE 5% WATER 50 ML IV SCH (08:58)
[2021-03-20] MEDS: ZINC SULFATE 220 MG ( 50 ) CAPSULE PO SCH (08:58)
[2021-03-20] MEDS: PANTOPRAZOLE SODIUM 40 MG/VIAL IV SCH (08:58)
[2021-03-20] MEDS: HYDROCODONE/ACETAMINOPHEN 5/325MG TABLET PO PRN (09:06)
[2021-03-20] MEDS ORDERED: DOBUTAMINE 250MG PREMIX 250 ML IV SCH (11:00)
[2021-03-20] MEDS ORDERED: FLUT1DIS3 INH (11:15)
[2021-03-20] MEDS ORDERED: ALBU18HF2 IH (11:15)
[2021-03-20] MEDS ORDERED: XAR15 MT (11:15)
[2021-03-20 16:21] LABS: PLATELET ESTIMATE NORMAL
[2021-03-27] MEDS ORDERED: IPRA3AMP9 NEB (11:32)
== END 2021-03-20 14:55 | disposition home or self-care (01) | DRG 133 ==
LOC: ER 04:50 → EDBEDREQTM 09:19 → EDBEDREQ 09:19 → ENRESERV 15:11 → 7EST 17:38 → MICUSO 03-17 17:20 → 5EST 03-19 14:12
PROVIDERS: ADMIT Internal Medicine; ATTEND Internal Medicine
PROC: 02HV33Z Insertion of Infusion Device into Superior Vena Cava, Percutaneous Approach (ICD-10-PCS; principal; 2021-03-18)
PROC: B548ZZA Ultrasonography of Superior Vena Cava, Guidance (ICD-10-PCS; 2021-03-18)
DX: J96.01 Acute respiratory failure with hypoxia (principal); I26.09 Other pulmonary embolism with acute cor pulmonale; I44.2 Atrioventricular block, complete; E43 Unspecified severe protein-calorie malnutrition; J18.9 Pneumonia, unspecified organism; I49.5 Sick sinus syndrome; G90.8 Other disorders of autonomic nervous system; E87.6 Hypokalemia; I10 Essential (primary) hypertension; N40.0 Benign prostatic hyperplasia without lower urinary tract symptoms; Z20.822 Contact with and (suspected) exposure to COVID-19; F14.10 Cocaine abuse, uncomplicated; F15.10 Other stimulant abuse, uncomplicated; F16.10 Hallucinogen abuse, uncomplicated; E83.42 Hypomagnesemia; J43.9 Emphysema, unspecified; D53.9 Nutritional anemia, unspecified; Z82.49 Family history of ischemic heart disease and other diseases of the circulatory system; Z86.16 Personal history of COVID-19; Z86.711 Personal history of pulmonary embolism; Z86.718 Personal history of other venous thrombosis and embolism; Z87.01 Personal history of pneumonia (recurrent); Z87.891 Personal history of nicotine dependence; Z68.22 Body mass index [BMI] 22.0-22.9, adult; Z98.1 Arthrodesis status
CPT/HCPCS: 36415; 36600; 71045; 71275; 76937; 80048; 80053; 80198; 80305; 82375; 82550; 82553; 82607; 82728; 82746; 82805; 83540; 83550; 83605; 83615; 83735; 83880; 84443; 84484; 85025; 85044; 85379; 85384; 86140; 87077; 87426; 93005; 93306; 93970; 94640; 99291; C1725; C9113; J0456; J0696; J1100; J1250; J1644; J1650; J2405; J3475; J7040; J7060; Q9967; U0003; U0005

== ENCOUNTER 2022-06-18 20:09 | Inpatient (IN) | payer MEDICARE, OTHER ==
[~2022-06-18] VITALS: Ht 198.1 cm; Wt 113.4 kg
[~2022-06-18 20:09] MED LIST changes: +ALBU18HF2 IH; -CIPR-264 MT; +FLUT1DIS3 INH; -HYDR100T26 PO; +IPRA3AMP9 NEB; +XAR15 MT
[2022-06-18] MEDS ORDERED: MORPHINE SULFATE 4 MG/ML CPJ (NOT FOR IM USE) IV ONE (23:30)
[2022-06-18 23:51] LABS: CHLORIDE 102 mEq/L (98-107)
[2022-06-18 23:59] LABS: BASOPHILS % 0.5 % (0.0-2.0); EOSINOPHILS % 0.8 % (0.0-5.0); HEMATOCRIT. 39.4 % (42.0-52.0); HEMOGLOBIN. 13.2 g/dL (14.0-18.0); LYMPHOCYTES % 13.3 % (20.0-50.0); MEAN CORPUSCULAR HEMOGLOBIN 37.3 pg (28.0-32.0); MEAN CORPUSCULAR VOLUME 111.9 fL (80.0-94.0); MONOCYTES % 10.6 % (2.0-8.0); NEUTROPHILS % 74.8 % (40.0-76.0); PLATELET 215 x1000/uL (130-400); RED BLOOD CELL COUNT 3.52 mill/uL (4.7-6.1); RED CELL DISTRIBUTION WIDTH 15.9 % (11.6-14.6)
[2022-06-19 00:09] LABS: D-DIMER 2.16 mg/L FEU (<0.50); INR 0.9; PARTIAL THROMBOPLASTIN TIME 31.2 sec (23.4-31.0); PROTHROMBIN TIME 10.1 sec (9.6-11.0)
[2022-06-19 01:56] LABS: PLATELET ESTIMATE NORMAL
[2022-06-19] MEDS ORDERED: IOHEXOL-350 100 ML BOTTLE ONE (03:33)
[2022-06-19] MEDS ORDERED: MORPHINE SULFATE 4 MG/ML CPJ (NOT FOR IM USE) IV ONE (04:45)
[2022-06-19] MEDS ORDERED: CYCLOBENZAPRINE 10MG TABLET PO ONE (04:45)
[2022-06-19] MEDS ORDERED: AZITHROMYCIN 500MG/250ML 250 ML IV ONE (06:15)
[2022-06-19] MEDS ORDERED: CEFTRIAXONE 1 G PREMIX 50 ML IV ONE (06:15)
[2022-06-19 08:00] VITALS: BP 132/79
[2022-06-19 12:00] VITALS: BP 141/92
[2022-06-19] MEDS ORDERED: ACETAMINOPHEN 325MG TABLET PO PRN (12:15)
[2022-06-19] MEDS ORDERED: HYDROCODONE/ACETAMINOPHEN 10/325MG TABLET PO PRN (12:15)
[2022-06-19] MEDS ORDERED: ONDANSETRON HCL 4MG/2ML INJ IV PRN (12:15)
[2022-06-19] MEDS ORDERED: GABA300S PO (13:09)
[2022-06-19] MEDS ORDERED: HYDR-4001 MT (13:09)
[2022-06-19] MEDS ORDERED: KETOROLAC 15MG/ML VIAL IV NR (13:30)
[2022-06-19] MEDS: GABAPENTIN 300MG CAPSULE PO SCH ×2 (15:10→21:18)
[2022-06-19 15:33] VITALS: BP 166/70
[2022-06-19] MEDS ORDERED: NALOXONE HCL 0.4MG/ML VIAL IV PRN (15:45)
[2022-06-19] MEDS: RIVAROXABAN 20 MG TABLET PO SCH (16:40)
[2022-06-19] MEDS: HYDROCODONE/ACETAMINOPHEN 10/325MG TABLET PO PRN ×2 (19:48→23:46)
[2022-06-19 20:00] VITALS: BP 159/83
[2022-06-19] MEDS: IPRATROPIUM/ALBUTEROL 0.5-3(2.5)MG/3ML NEB HHN SCH (20:09)
[2022-06-20] VITALS: BP 173/77
[2022-06-20] MEDS: IPRATROPIUM/ALBUTEROL 0.5-3(2.5)MG/3ML NEB HHN SCH ×3 (02:05→14:40)
[2022-06-20 04:00] VITALS: BP 148/71
[2022-06-20] MEDS: GABAPENTIN 300MG CAPSULE PO SCH ×3 (05:34→22:17)
[2022-06-20] MEDS: HYDROCODONE/ACETAMINOPHEN 10/325MG TABLET PO PRN ×3 (05:34→20:02)
[2022-06-20 08:00] VITALS: BP 152/84
[2022-06-20] MEDS: CEFTRIAXONE 1,000 MG in DEXTROSE 5% WATER 50 ML IV SCH (09:46)
[2022-06-20] MEDS: AMLODIPINE 5MG TABLET PO SCH (09:47)
[2022-06-20] MEDS: AZITHROMYCIN 500 MG TABLET PO SCH (10:48)
[2022-06-20 12:00] VITALS: BP 158/86
[2022-06-20 16:00] VITALS: BP 123/65
[2022-06-20] MEDS: RIVAROXABAN 20 MG TABLET PO SCH (17:48)
[2022-06-20] MEDS: NICOTINE 14MG PATCH TD SCH (17:48)
[2022-06-20 20:00] VITALS: BP 136/73
[2022-06-21] VITALS (7 sets, daily range): BP systolic 105–139; BP diastolic 54–79
[2022-06-21] MEDS: GABAPENTIN 300MG CAPSULE PO SCH ×3 (06:17→22:09)
[2022-06-21] MEDS: HYDROCODONE/ACETAMINOPHEN 10/325MG TABLET PO PRN ×3 (06:18→22:09)
[2022-06-21] MEDS: BUDESONIDE 0.5MG/2ML NEB HHN SCH ×2 (07:40→08:10)
[2022-06-21] MEDS: IPRATROPIUM/ALBUTEROL 0.5-3(2.5)MG/3ML NEB HHN SCH ×3 (07:40→15:49)
[2022-06-21] MEDS: CEFTRIAXONE 1,000 MG in DEXTROSE 5% WATER 50 ML IV SCH (09:36)
[2022-06-21] MEDS: NICOTINE 14MG PATCH TD SCH (09:36)
[2022-06-21] MEDS: AZITHROMYCIN 500 MG TABLET PO SCH (09:37)
[2022-06-21] MEDS: AMLODIPINE 5MG TABLET PO SCH (09:37)
[2022-06-21] MEDS ORDERED: KETOROLAC 15MG/ML VIAL IV NR (10:00)
[2022-06-21] MEDS: RIVAROXABAN 20 MG TABLET PO SCH (18:26)
[2022-06-22] VITALS: BP 109/67
[2022-06-22 02:29] LABS: *AMPHETAMINES SCREEN URINE PRESUMTIVE POSITIVE (NEGATIVE); *BARBITURATES SCREEN URINE NEGATIVE (NEGATIVE); *BENZODIAZEPINES SCREEN URINE NEGATIVE (NEGATIVE); *COCAINE SCREEN URINE PRESUMTIVE POSITIVE (NEGATIVE); CANNABINOID URINE SCREEN NEGATIVE (NEGATIVE); METHADONE URINE SCREEN NEGATIVE (NEGATIVE); OPIATES URINE SCREEN PRESUMTIVE POSITIVE (NEGATIVE); PHENCYCLIDINE URINE SCREEN NEGATIVE (NEGATIVE)
[2022-06-22] MEDS: HYDROCODONE/ACETAMINOPHEN 10/325MG TABLET PO PRN ×5 (02:34→21:48)
[2022-06-22 04:00] VITALS: BP 129/77
[2022-06-22] MEDS: GABAPENTIN 300MG CAPSULE PO SCH ×3 (06:39→21:15)
[2022-06-22 08:00] VITALS: BP 133/71
[2022-06-22] MEDS: IPRATROPIUM/ALBUTEROL 0.5-3(2.5)MG/3ML NEB HHN SCH ×3 (08:10→20:13)
[2022-06-22] MEDS: CEFTRIAXONE 1,000 MG in DEXTROSE 5% WATER 50 ML IV SCH (09:34)
[2022-06-22] MEDS: AMLODIPINE 5MG TABLET PO SCH (09:37)
[2022-06-22] MEDS: AZITHROMYCIN 500 MG TABLET PO SCH (09:37)
[2022-06-22] MEDS: NICOTINE 14MG PATCH TD SCH (09:37)
[2022-06-22 09:44] LABS: FOLIC ACID (FOLATE) SERUM 4.6 ng/mL (>5.38)
[2022-06-22] MEDS ORDERED: CYANOCOBALAMIN 1000MCG/ML VIAL IM SCH (11:00)
[2022-06-22 12:30] VITALS: BP 147/81
[2022-06-22] MEDS: FERROUS SULFATE 325MG TABLET PO SCH ×2 (12:40→16:48)
[2022-06-22 13:01] LABS: PROSTRATE SPECIFIC AG TOTAL 1.81 ng/mL (0.0-4.0)
[2022-06-22 16:30] VITALS: BP 113/61
[2022-06-22 20:00] VITALS: BP 104/61
[2022-06-22] MEDS: BUDESONIDE 0.5MG/2ML NEB HHN SCH (20:12)
[2022-06-22] MEDS: GUAIFENESIN-DM 200MG-20MG/10ML UDC PO PRN (23:43)
[2022-06-23] VITALS: BP 158/87
[2022-06-23] MEDS: IPRATROPIUM/ALBUTEROL 0.5-3(2.5)MG/3ML NEB HHN SCH ×4 (02:13→20:14)
[2022-06-23 04:00] VITALS: BP 122/68
[2022-06-23] MEDS: GABAPENTIN 300MG CAPSULE PO SCH ×3 (05:24→21:33)
[2022-06-23 07:41] LABS: BASOPHILS % 0.3 % (0.0-2.0); EOSINOPHILS % 2.2 % (0.0-5.0); HEMATOCRIT. 34.7 % (42.0-52.0); HEMOGLOBIN. 11.6 g/dL (14.0-18.0); LYMPHOCYTES % 12.1 % (20.0-50.0); MEAN CORPUSCULAR VOLUME 110.6 fL (80.0-94.0); MEAN PLATELET VOLUME 8.1 fl (7.4-10.4); MONOCYTES % 10.4 % (2.0-8.0); PLATELET 223 x1000/uL (130-400); RED BLOOD CELL COUNT 3.14 mill/uL (4.7-6.1); RED CELL DISTRIBUTION WIDTH 15.9 % (11.6-14.6)
[2022-06-23 08:22] LABS: CHLORIDE 101 mEq/L (98-107)
[2022-06-23] MEDS ORDERED: FOLIC ACID 1MG TABLET PO SCH (09:00)
[2022-06-23] MEDS ORDERED: ASCORBIC ACID 500 MG TABLET PO SCH (09:00)
[2022-06-23] MEDS: BUDESONIDE 0.5MG/2ML NEB HHN SCH (09:12)
[2022-06-23] MEDS: FERROUS SULFATE 325MG TABLET PO SCH ×3 (12:13→18:16)
[2022-06-23] MEDS: AMLODIPINE 5MG TABLET PO SCH (12:15)
[2022-06-23] MEDS: NICOTINE 14MG PATCH TD SCH (12:32)
[2022-06-23 16:00] VITALS: BP 144/77
[2022-06-23] MEDS: HYDROCODONE/ACETAMINOPHEN 10/325MG TABLET PO PRN (18:16)
[2022-06-23 20:00] VITALS: BP 129/96
[2022-06-24] VITALS: BP 127/67
[2022-06-24] MEDS: HYDROCODONE/ACETAMINOPHEN 10/325MG TABLET PO PRN ×3 (02:06→20:39)
[2022-06-24] MEDS: IPRATROPIUM/ALBUTEROL 0.5-3(2.5)MG/3ML NEB HHN SCH ×3 (02:21→21:09)
[2022-06-24 04:00] VITALS: BP 114/69
[2022-06-24] MEDS: FERROUS SULFATE 325MG TABLET PO SCH ×3 (05:47→18:49)
[2022-06-24] MEDS: GABAPENTIN 300MG CAPSULE PO SCH ×3 (05:47→20:38)
[2022-06-24 08:00] VITALS: BP 118/70
[2022-06-24] MEDS: AMLODIPINE 5MG TABLET PO SCH (09:50)
[2022-06-24] MEDS: NICOTINE 14MG PATCH TD SCH (09:53)
[2022-06-24 12:00] VITALS: BP 124/76
[2022-06-24 16:00] VITALS: BP 128/71
[2022-06-24] MEDS ORDERED: NALOXONE HCL 0.4MG/ML VIAL IV PRN (19:00)
[2022-06-24 20:00] VITALS: BP 162/86
[2022-06-25] VITALS (45 sets, daily range): BP systolic 93–201; BP diastolic 48–131
[2022-06-25] MEDS: IPRATROPIUM/ALBUTEROL 0.5-3(2.5)MG/3ML NEB HHN SCH ×3 (01:08→18:00)
[2022-06-25] MEDS: HYDROCODONE/ACETAMINOPHEN 10/325MG TABLET PO PRN ×2 (01:39→14:46)
[2022-06-25] MEDS: GABAPENTIN 300MG CAPSULE PO SCH ×3 (05:27→22:28)
[2022-06-25] MEDS ORDERED: LIDOCAINE HCL 1%/EPI 1:200,000 30 ML VIAL ONE (06:11)
[2022-06-25] MEDS ORDERED: POLYMYXIN B SULFATE 500000 UNITS/VIAL ONE (06:12)
[2022-06-25] MEDS ORDERED: THROMBIN (BOVINE) 5000 UNITS/VIAL TOP ONE (06:12)
[2022-06-25] MEDS ORDERED: GENTAMICIN SULF 40MG/ML 2ML VIAL ONE (06:12)
[2022-06-25] MEDS ORDERED: SKIN ADHESIVE 0.7 GM EA TOP ONE (06:12)
[2022-06-25] MEDS ORDERED: ONDANSETRON HCL 4MG/2ML INJ ONE (07:02)
[2022-06-25] MEDS ORDERED: SUCCINYLCHOLINE CHLORIDE 200MG/10ML IV ONE (07:02)
[2022-06-25] MEDS ORDERED: ROCURONIUM BROMIDE 10MG/ML VIAL 5ML IV ONE (07:02)
[2022-06-25] MEDS ORDERED: CEFAZOLIN SODIUM 1000MG/VIAL ONE (07:02)
[2022-06-25] MEDS ORDERED: PROPOFOL 200MG/20ML VIAL IV ONE (07:03)
[2022-06-25] MEDS ORDERED: NEOSTIGMINE METHYLSULFATE 1MG/ML 10 ML VIAL ONE (07:03)
[2022-06-25] MEDS ORDERED: GLYCOPYRROLATE 0.2 MG/ML 2ML VIAL ONE ×2 (07:03)
[2022-06-25] MEDS ORDERED: MIDAZOLAM HCL 2 MG/2 ML VIAL ONE (07:04)
[2022-06-25] MEDS ORDERED: FENTANYL CITRATE/PF 50MCG/ML 2ML VIAL ONE (07:04)
[2022-06-25] MEDS: FERROUS SULFATE 325MG TABLET PO SCH ×3 (07:50→16:02)
[2022-06-25 07:54] LABS: HEMOGLOBIN 13.1 g/dL (14.0-18.0); MEAN CORPUSCULAR HEMOGLOBIN 37.2 pg (28.0-32.0); MEAN CORPUSCULAR VOLUME 110.6 fL (80.0-94.0); PLATELET 277 x1000/uL (130-400); RED BLOOD CELL COUNT 3.52 mill/uL (4.7-6.1); RED CELL DISTRIBUTION WIDTH 15.8 % (11.6-14.6)
[2022-06-25] MEDS: AMLODIPINE 5MG TABLET PO SCH (09:00)
[2022-06-25] MEDS: NICOTINE 14MG PATCH TD SCH (09:00)
[2022-06-25] MEDS ORDERED: EPHEDRINE SULFATE 50MG/ML VIAL ONE (09:11)
[2022-06-25 09:19] LABS: CHLORIDE 98 mEq/L (98-107)
[2022-06-25] MEDS ORDERED: HYDROMORPHONE HCL/PF 2MG/ML CPJ IV PRN (09:45)
[2022-06-25] MEDS ORDERED: LABETALOL 5MG/ML SYR 20 MG/4 ML SYRINGE IV PRN (09:45)
[2022-06-25] MEDS ORDERED: ONDANSETRON HCL 4MG/2ML INJ IV PRN (09:45)
[2022-06-25] MEDS ORDERED: MEPERIDINE HCL/PF 25MG/ML CPJ IV PRN (09:45)
[2022-06-25] MEDS ORDERED: HYDRALAZINE 20MG/ML VIAL ONE (10:02)
[2022-06-25] MEDS ORDERED: HYDROMORPHONE HCL/PF 2MG/ML CPJ ONE (10:02)
[2022-06-25] MEDS: DEXT 5%/LACTATED RINGERS 1,000 ML IV SCH ×2 (10:30→21:47)
[2022-06-25] MEDS ORDERED: NICARDIPINE 100 MG in SODIUM CHLORIDE 0.9% 60 ML IV PRN (12:00)
[2022-06-25] MEDS: DEXAMETHASONE 4MG/ML 1ML VIAL IV SCH ×2 (13:08→17:21)
[2022-06-25] MEDS: MORPHINE SULFATE 4 MG/ML CPJ (NOT FOR IM USE) IV PRN ×3 (13:09→18:34)
[2022-06-25] MEDS: CEFAZOLIN 1000MG PREMIX 50 ML IV SCH ×2 (13:32→21:48)
[2022-06-25] MEDS ORDERED: CEFAZOLIN SODIUM 1000MG/VIAL IV SCH (14:00)
[2022-06-25] MEDS: GUAIFENESIN-DM 200MG-20MG/10ML UDC PO PRN (22:28)
[2022-06-26] VITALS (41 sets, daily range): BP systolic 86–171; BP diastolic 28–109
[2022-06-26] MEDS: MORPHINE SULFATE 4 MG/ML CPJ (NOT FOR IM USE) IV PRN ×5 (00:22→20:49)
[2022-06-26] MEDS: DEXAMETHASONE 4MG/ML 1ML VIAL IV SCH ×5 (00:22→20:13)
[2022-06-26] MEDS: CEFAZOLIN 1000MG PREMIX 50 ML IV SCH ×3 (06:51→20:13)
[2022-06-26] MEDS: GABAPENTIN 300MG CAPSULE PO SCH ×3 (06:51→20:13)
[2022-06-26] MEDS: DEXT 5%/LACTATED RINGERS 1,000 ML IV SCH ×3 (06:52→20:13)
[2022-06-26] MEDS: FERROUS SULFATE 325MG TABLET PO SCH ×3 (07:55→17:19)
[2022-06-26] MEDS: AMLODIPINE 5MG TABLET PO SCH (08:00)
[2022-06-26] MEDS: NICOTINE 14MG PATCH TD SCH (08:00)
[2022-06-26] MEDS: IPRATROPIUM/ALBUTEROL 0.5-3(2.5)MG/3ML NEB HHN SCH ×4 (08:31→21:24)
[2022-06-26] MEDS ORDERED: HYDRALAZINE 20MG/ML VIAL IV PRN (09:15)
[2022-06-27] VITALS (7 sets, daily range): BP systolic 96–125; BP diastolic 52–90
[2022-06-27] MEDS: MORPHINE SULFATE 4 MG/ML CPJ (NOT FOR IM USE) IV PRN ×4 (01:50→09:16)
[2022-06-27] MEDS: IPRATROPIUM/ALBUTEROL 0.5-3(2.5)MG/3ML NEB HHN SCH ×3 (02:46→21:12)
[2022-06-27] MEDS: CEFAZOLIN 1000MG PREMIX 50 ML IV SCH (04:18)
[2022-06-27] MEDS: DEXAMETHASONE 4MG/ML 1ML VIAL IV SCH ×2 (04:18→12:26)
[2022-06-27] MEDS: GABAPENTIN 300MG CAPSULE PO SCH ×3 (04:18→21:01)
[2022-06-27] MEDS: AMLODIPINE 5MG TABLET PO SCH (09:14)
[2022-06-27] MEDS: FERROUS SULFATE 325MG TABLET PO SCH ×3 (09:14→18:10)
[2022-06-27] MEDS: NICOTINE 14MG PATCH TD SCH (09:15)
[2022-06-27] MEDS ORDERED: MORPHINE SULFATE 4 MG/ML CPJ (NOT FOR IM USE) IV PRN (09:45)
[2022-06-27] MEDS: HYDROMORPHONE HCL/PF 2MG/ML CPJ IV PRN ×3 (12:23→23:49)
[2022-06-27] MEDS: HYDROCODONE/ACETAMINOPHEN 10/325MG TABLET PO PRN (20:07)
[2022-06-28] VITALS: BP 120/92
[2022-06-28] MEDS: IPRATROPIUM/ALBUTEROL 0.5-3(2.5)MG/3ML NEB HHN SCH ×3 (02:44→13:38)
[2022-06-28] MEDS: HYDROCODONE/ACETAMINOPHEN 10/325MG TABLET PO PRN ×3 (03:16→18:18)
[2022-06-28 04:00] VITALS: BP 158/64
[2022-06-28] MEDS: HYDROMORPHONE HCL/PF 2MG/ML CPJ IV PRN ×3 (05:23→23:18)
[2022-06-28] MEDS: GABAPENTIN 300MG CAPSULE PO SCH ×3 (05:47→21:21)
[2022-06-28 08:00] VITALS: BP 126/73
[2022-06-28] MEDS: FERROUS SULFATE 325MG TABLET PO SCH ×3 (08:26→18:17)
[2022-06-28] MEDS: AMLODIPINE 5MG TABLET PO SCH (08:26)
[2022-06-28] MEDS: NICOTINE 14MG PATCH TD SCH (08:26)
[2022-06-28 12:00] VITALS: BP 127/91
[2022-06-28] MEDS ORDERED: BISACODYL 10MG SUPP PR NR (12:00)
[2022-06-28] MEDS ORDERED: HYDRALAZINE 5 MG in SODIUM CHLORIDE 0.9% 49.5 ML IV PRN (12:00)
[2022-06-28] MEDS: LACTULOSE 20G/30ML UDC PO SCH ×3 (13:05→21:00)
[2022-06-28 16:00] VITALS: BP 128/92
[2022-06-28] MEDS: FOLIC ACID 1MG TABLET PO SCH (18:17)
[2022-06-28 20:00] VITALS: BP 141/70
[2022-06-29] VITALS: BP 121/74
[2022-06-29] MEDS: IPRATROPIUM/ALBUTEROL 0.5-3(2.5)MG/3ML NEB HHN SCH ×5 (00:31→21:22)
[2022-06-29 04:00] VITALS: BP 103/52
[2022-06-29] MEDS: HYDROCODONE/ACETAMINOPHEN 10/325MG TABLET PO PRN ×3 (05:04→21:58)
[2022-06-29 08:00] VITALS: BP 139/62
[2022-06-29] MEDS: AMLODIPINE 5MG TABLET PO SCH (08:59)
[2022-06-29] MEDS: FERROUS SULFATE 325MG TABLET PO SCH ×3 (08:59→16:47)
[2022-06-29] MEDS: FOLIC ACID 1MG TABLET PO SCH (08:59)
[2022-06-29] MEDS: NICOTINE 14MG PATCH TD SCH (08:59)
[2022-06-29] MEDS: HYDROMORPHONE HCL/PF 2MG/ML CPJ IV PRN (11:20)
[2022-06-29 12:00] VITALS: BP 116/63
[2022-06-29] MEDS ORDERED: MENTHOL/LANOLIN/CALAMINE/ZN OX OINT 71GM TOP PRN (12:45)
[2022-06-29] MEDS: GABAPENTIN 300MG CAPSULE PO SCH ×2 (13:04→21:58)
[2022-06-29 16:00] VITALS: BP 97/49
[2022-06-29] MEDS: DOCUSATE SODIUM 100MG CAPSULE PO SCH (16:46)
[2022-06-29 17:10] LABS: 25-HYDROXY VITAMIN D3 3.3 ng/mL (.)
[2022-06-29 20:00] VITALS: BP 102/57
[2022-06-30] VITALS (7 sets, daily range): BP systolic 96–108; BP diastolic 52–55
[2022-06-30] MEDS: IPRATROPIUM/ALBUTEROL 0.5-3(2.5)MG/3ML NEB HHN SCH ×3 (01:40→14:37)
[2022-06-30] MEDS: HYDROMORPHONE HCL 4MG TABLET PO PRN ×4 (03:03→18:27)
[2022-06-30] MEDS: HYDROCODONE/ACETAMINOPHEN 10/325MG TABLET PO PRN ×3 (06:24→20:54)
[2022-06-30] MEDS: GABAPENTIN 300MG CAPSULE PO SCH ×3 (06:24→20:54)
[2022-06-30] MEDS: AMLODIPINE 5MG TABLET PO SCH (09:00)
[2022-06-30] MEDS ORDERED: POLYETHYLENE GLYCOL 3350 (17GM) 1 DOSE PACK PO SCH (09:00)
[2022-06-30] MEDS: FERROUS SULFATE 325MG TABLET PO SCH ×3 (09:04→17:50)
[2022-06-30] MEDS: DOCUSATE SODIUM 100MG CAPSULE PO SCH ×2 (09:04→17:00)
[2022-06-30] MEDS: NICOTINE 14MG PATCH TD SCH (09:05)
[2022-06-30] MEDS: FOLIC ACID 1MG TABLET PO SCH (09:05)
== END 2022-06-30 21:20 | DRG 459 ==
LOC: ER 20:09 → 6WST 06-19 07:16 → EDBEDREQ 06-19 07:25 → EDBEDREQTM 06-19 07:25 → ENRESERV 06-19 09:17 → 6WST 06-19 10:57 → 6EST 06-23 15:24 → MICUNO 06-25 12:30 → 6EST 06-26 18:25
PROVIDERS: ADMIT Internal Medicine; ATTEND Internal Medicine
PROC: 0RG7071 Fusion of 2 to 7 Thoracic Vertebral Joints with Autologous Tissue Substitute, Posterior Approach, Posterior Column, Open Approach (ICD-10-PCS; principal; 2022-06-25)
PROC: 0RG4071 Fusion of Cervicothoracic Vertebral Joint with Autologous Tissue Substitute, Posterior Approach, Posterior Column, Open Approach (ICD-10-PCS; 2022-06-25)
PROC: 00NW0ZZ Release Cervical Spinal Cord, Open Approach (ICD-10-PCS; 2022-06-25)
PROC: 00NX0ZZ Release Thoracic Spinal Cord, Open Approach (ICD-10-PCS; 2022-06-25)
PROC: 0RP604Z Removal of Internal Fixation Device from Thoracic Vertebral Joint, Open Approach (ICD-10-PCS; 2022-06-25)
PROC: 0RP404Z Removal of Internal Fixation Device from Cervicothoracic Vertebral Joint, Open Approach (ICD-10-PCS; 2022-06-25)
PROC: 4A11X4G Monitoring of Peripheral Nervous Electrical Activity, Intraoperative, External Approach (ICD-10-PCS; 2022-06-25)
DX: M48.04 Spinal stenosis, thoracic region (principal); G82.50 Quadriplegia, unspecified; J96.00 Acute respiratory failure, unspecified whether with hypoxia or hypercapnia; J12.9 Viral pneumonia, unspecified; E44.1 Mild protein-calorie malnutrition; G95.29 Other cord compression; M47.13 Other spondylosis with myelopathy, cervicothoracic region; M48.03 Spinal stenosis, cervicothoracic region; Z20.822 Contact with and (suspected) exposure to COVID-19; J43.9 Emphysema, unspecified; M48.061 Spinal stenosis, lumbar region without neurogenic claudication; E53.8 Deficiency of other specified B group vitamins; E61.1 Iron deficiency; M47.22 Other spondylosis with radiculopathy, cervical region; G93.2 Benign intracranial hypertension; F17.210 Nicotine dependence, cigarettes, uncomplicated; F19.10 Other psychoactive substance abuse, uncomplicated; F14.10 Cocaine abuse, uncomplicated; I10 Essential (primary) hypertension; G89.4 Chronic pain syndrome; Z79.01 Long term (current) use of anticoagulants; Z79.899 Other long term (current) drug therapy; Z68.28 Body mass index [BMI] 28.0-28.9, adult; Z86.718 Personal history of other venous thrombosis and embolism; Z86.711 Personal history of pulmonary embolism; Z82.49 Family history of ischemic heart disease and other diseases of the circulatory system
CPT/HCPCS: 36415; 70551; 71045; 71275; 72040; 72141; 72146; 72148; 76000; 80048; 80053; 80305; 82306; 82607; 82728; 82746; 83540; 83550; 83880; 84153; 84443; 84484; 85025; 85027; 85379; 86850; 86900; 87426; 88300; 92610; 93005; 93306; 94640; 95925; 95926; 95928; 95929; 97162; 97164; 97166; 97168; 97530; 99285; J0330; J0360; J0456; J0690; J0696; J1100; J1170; J1580; J1885; J2250; J2270; J2405; J2704; J2710; J3010; J3490; J7060; J7121; J7626; Q9967; G0103

== ENCOUNTER 2022-07-09 12:08 | Inpatient (IN) | payer MEDICARE, OTHER ==
[2022-07-09] VITALS (17 sets, daily range): BP systolic 125–130; BP diastolic 85–90
[~2022-07-09] VITALS: Ht 188 cm; Wt 113.4 kg
[~2022-07-09 12:08] MED LIST changes: +GABA300S PO; +HYDR-4001 MT; -XAR15 MT
[2022-07-09] MEDS: DEXT 5%/0.45% NACL 1000ML 1,000 ML IV SCH (23:00)
[2022-07-09] MEDS ORDERED: ACETAMINOPHEN 325MG TABLET PO PRN (23:00)
[2022-07-09] MEDS ORDERED: ONDANSETRON HCL 4MG/2ML INJ IV PRN (23:00)
[2022-07-09] MEDS ORDERED: VANCOMYCIN 1G PREMIX 200 ML IV SCH (23:00)
[2022-07-09] MEDS ORDERED: CLONIDINE 0.1MG TABLET PO PRN (23:00)
[2022-07-09] MEDS ORDERED: ZOLPIDEM TARTRATE 5MG TABLET PO PRN (23:15)
[2022-07-10] VITALS (7 sets, daily range): BP systolic 100–120; BP diastolic 52–80
[2022-07-10 00:32] LABS: BASOPHILS % 0.7 % (0.0-2.0); EOSINOPHILS % 2.3 % (0.0-5.0); HEMATOCRIT. 26.7 % (42.0-52.0); LYMPHOCYTES % 18.6 % (20.0-50.0); MEAN CORPUSCULAR HEMOGLOBIN 35.3 pg (28.0-32.0); MEAN CORPUSCULAR VOLUME 105.2 fL (80.0-94.0); MEAN PLATELET VOLUME 7.4 fl (7.4-10.4); MONOCYTES % 5.6 % (2.0-8.0); NEUTROPHILS % 72.8 % (40.0-76.0); PLATELET 219 x1000/uL (130-400); RED BLOOD CELL COUNT 2.54 mill/uL (4.7-6.1); RED CELL DISTRIBUTION WIDTH 15.7 % (11.6-14.6)
[2022-07-10 01:00] LABS: CHLORIDE 104 mEq/L (98-107)
[2022-07-10] MEDS ORDERED: VANCOMYCIN 2,000 MG in DEXT 5% WATER 500 ML IV NR (01:00)
[2022-07-10 01:39] LABS: PARTIAL THROMBOPLASTIN TIME 33.6 sec (23.4-31.0); PROTHROMBIN TIME 10.7 sec (9.6-11.0)
[2022-07-10] MEDS: MORPHINE SULFATE 2 MG/ML CPJ (NOT FOR IM USE) IV PRN ×4 (05:04→20:22)
[2022-07-10] MEDS: GABAPENTIN 300MG CAPSULE PO SCH ×3 (05:43→20:44)
[2022-07-10] MEDS ORDERED: LORAZEPAM 2MG/ML CPJ IV NR (08:21)
[2022-07-10] MEDS ORDERED: LORAZEPAM 2MG/ML CPJ IV PRN (10:30)
[2022-07-10] MEDS: FOLIC ACID 1MG TABLET PO SCH (11:00)
[2022-07-10] MEDS: TAMSULOSIN HCL 0.4MG SR CAPSULE PO SCH (11:00)
[2022-07-10] MEDS: AMLODIPINE 5MG TABLET PO SCH ×2 (11:00→20:44)
[2022-07-10] MEDS: PIPERACILLIN/TAZOBACTAM 3.375 G in DEXTROSE 5% WATER 50 ML IV SCH ×2 (11:01→20:44)
[2022-07-10] MEDS: VANCOMYCIN 1G PREMIX 200 ML IV SCH ×2 (12:44→20:44)
[2022-07-10] MEDS: DEXT 5%/0.45% NACL 1000ML 1,000 ML IV SCH (12:49)
[2022-07-10] MEDS: BUDESONIDE 0.5MG/2ML NEB HHN SCH (18:45)
[2022-07-10] MEDS: QUETIAPINE FUMARATE 25MG TABLET PO SCH (20:44)
[2022-07-11] VITALS: BP_SYST 115; BP_SYST 133; BP_DIAS 61; BP_DIAS 63
[2022-07-11] MEDS ORDERED: ENOXAPARIN 120MG/0.8ML SYR SUBCUT NR (00:15)
[2022-07-11] MEDS: MORPHINE SULFATE 2 MG/ML CPJ (NOT FOR IM USE) IV PRN ×2 (00:22→04:22)
[2022-07-11] MEDS: DEXT 5%/0.45% NACL 1000ML 1,000 ML IV SCH (01:01)
[2022-07-11] MEDS: BUDESONIDE 0.5MG/2ML NEB HHN SCH ×4 (04:49→20:25)
[2022-07-11] MEDS: PIPERACILLIN/TAZOBACTAM 3.375 G in DEXTROSE 5% WATER 50 ML IV SCH ×3 (04:49→22:00)
[2022-07-11] MEDS: GABAPENTIN 300MG CAPSULE PO SCH ×3 (04:50→22:00)
[2022-07-11] MEDS: IPRATROPIUM/ALBUTEROL 0.5-3(2.5)MG/3ML NEB HHN PRN ×2 (05:46→09:58)
[2022-07-11 08:00] VITALS: BP 118/71
[2022-07-11 08:25] LABS: BASOPHILS % 0.4 % (0.0-2.0); EOSINOPHILS % 2.8 % (0.0-5.0); HEMATOCRIT. 25.5 % (42.0-52.0); HEMOGLOBIN. 8.6 g/dL (14.0-18.0); LYMPHOCYTES % 26.2 % (20.0-50.0); MEAN CORPUSCULAR HEMOGLOBIN 35.5 pg (28.0-32.0); MEAN CORPUSCULAR VOLUME 104.9 fL (80.0-94.0); MEAN PLATELET VOLUME 8.1 fl (7.4-10.4); MONOCYTES % 7.7 % (2.0-8.0); NEUTROPHILS % 62.9 % (40.0-76.0); PLATELET 197 x1000/uL (130-400); RED BLOOD CELL COUNT 2.43 mill/uL (4.7-6.1); RED CELL DISTRIBUTION WIDTH 16.1 % (11.6-14.6)
[2022-07-11] MEDS: TAMSULOSIN HCL 0.4MG SR CAPSULE PO SCH (08:59)
[2022-07-11] MEDS: FOLIC ACID 1MG TABLET PO SCH (08:59)
[2022-07-11] MEDS: AMLODIPINE 5MG TABLET PO SCH ×2 (09:01→21:56)
[2022-07-11] MEDS: HYDROMORPHONE HCL/PF 2MG/ML CPJ IV PRN ×2 (09:01→16:10)
[2022-07-11 12:00] VITALS: BP 101/61
[2022-07-11] MEDS: VANCOMYCIN 1G PREMIX 200 ML IV SCH ×2 (13:10→17:34)
[2022-07-11 14:05] LABS: CHLORIDE 105 mEq/L (98-107)
[2022-07-11] MEDS: CARISOPRODOL 350 MG TABLET PO SCH ×2 (15:03→22:00)
[2022-07-11 16:00] VITALS: BP 122/59
[2022-07-11 20:00] VITALS: BP 91/54
[2022-07-11] MEDS: ENOXAPARIN 120MG/0.8ML SYR SUBCUT SCH (21:39)
[2022-07-11] MEDS: QUETIAPINE FUMARATE 25MG TABLET PO SCH (21:40)
[2022-07-12] VITALS: BP 98/58
[2022-07-12] MEDS: VANCOMYCIN 1G PREMIX 200 ML IV SCH ×3 (02:00→18:12)
[2022-07-12] MEDS: HYDROMORPHONE HCL/PF 2MG/ML CPJ IV PRN ×4 (03:45→18:12)
[2022-07-12] MEDS: PIPERACILLIN/TAZOBACTAM 3.375 G in DEXTROSE 5% WATER 50 ML IV SCH ×3 (06:00→22:19)
[2022-07-12] MEDS: CARISOPRODOL 350 MG TABLET PO SCH ×3 (06:00→22:06)
[2022-07-12] MEDS: GABAPENTIN 300MG CAPSULE PO SCH ×3 (07:12→22:06)
[2022-07-12 07:40] LABS: BASOPHILS % 0.7 % (0.0-2.0); EOSINOPHILS % 2.3 % (0.0-5.0); HEMATOCRIT. 26.9 % (42.0-52.0); HEMOGLOBIN. 8.9 g/dL (14.0-18.0); LYMPHOCYTES % 27.6 % (20.0-50.0); MEAN CORPUSCULAR HEMOGLOBIN 34.5 pg (28.0-32.0); MEAN CORPUSCULAR VOLUME 104.3 fL (80.0-94.0); MEAN PLATELET VOLUME 8.7 fl (7.4-10.4); MONOCYTES % 10.8 % (2.0-8.0); NEUTROPHILS % 58.6 % (40.0-76.0); PLATELET 187 x1000/uL (130-400); RED BLOOD CELL COUNT 2.58 mill/uL (4.7-6.1); RED CELL DISTRIBUTION WIDTH 16.4 % (11.6-14.6)
[2022-07-12 08:00] VITALS: BP 95/60
[2022-07-12 08:13] LABS: CHLORIDE 103 mEq/L (98-107)
[2022-07-12] MEDS: AMLODIPINE 5MG TABLET PO SCH ×3 (09:00→22:06)
[2022-07-12] MEDS: BUDESONIDE 0.5MG/2ML NEB HHN SCH ×2 (09:15→21:16)
[2022-07-12] MEDS: TAMSULOSIN HCL 0.4MG SR CAPSULE PO SCH (09:23)
[2022-07-12] MEDS: FOLIC ACID 1MG TABLET PO SCH (09:23)
[2022-07-12] MEDS: ENOXAPARIN 120MG/0.8ML SYR SUBCUT SCH ×2 (09:24→22:08)
[2022-07-12 12:00] VITALS: BP 107/66
[2022-07-12 19:09] VITALS: BP 90/56
[2022-07-12 20:00] VITALS: BP 94/47
[2022-07-12] MEDS: QUETIAPINE FUMARATE 25MG TABLET PO SCH (22:06)
[2022-07-13] VITALS: BP 101/5
[2022-07-13] MEDS: VANCOMYCIN 1G PREMIX 200 ML IV SCH ×2 (02:00→09:29)
[2022-07-13 04:00] VITALS: BP 114/66
[2022-07-13] MEDS: GABAPENTIN 300MG CAPSULE PO SCH ×3 (05:28→22:00)
[2022-07-13] MEDS: CARISOPRODOL 350 MG TABLET PO SCH ×3 (05:28→22:27)
[2022-07-13] MEDS: PIPERACILLIN/TAZOBACTAM 3.375 G in DEXTROSE 5% WATER 50 ML IV SCH ×3 (05:34→22:30)
[2022-07-13] MEDS: HYDROMORPHONE HCL/PF 2MG/ML CPJ IV PRN ×3 (05:41→17:37)
[2022-07-13 08:00] VITALS: BP 97/48
[2022-07-13] MEDS: AMLODIPINE 5MG TABLET PO SCH ×2 (09:00→21:00)
[2022-07-13 09:25] LABS: CHLORIDE 103 mEq/L (98-107)
[2022-07-13] MEDS: FOLIC ACID 1MG TABLET PO SCH (09:27)
[2022-07-13] MEDS: TAMSULOSIN HCL 0.4MG SR CAPSULE PO SCH (09:28)
[2022-07-13] MEDS: ENOXAPARIN 120MG/0.8ML SYR SUBCUT SCH ×2 (09:30→21:00)
[2022-07-13] MEDS: BUDESONIDE 0.5MG/2ML NEB HHN SCH (10:10)
[2022-07-13] MEDS: IPRATROPIUM/ALBUTEROL 0.5-3(2.5)MG/3ML NEB HHN PRN ×2 (10:10→21:22)
[2022-07-13] MEDS ORDERED: NALOXONE HCL 0.4MG/ML VIAL IV PRN (11:00)
[2022-07-13] MEDS: LACTULOSE 20G/30ML UDC PO SCH ×3 (11:14→17:00)
[2022-07-13 12:00] VITALS: BP 99/50
[2022-07-13] MEDS: OXYCODONE HCL 10MG TABLET SR 12HR PO SCH ×2 (14:33→22:24)
[2022-07-13 16:00] VITALS: BP 108/50
[2022-07-13 20:00] VITALS: BP 100/68
[2022-07-13] MEDS: QUETIAPINE FUMARATE 25MG TABLET PO SCH (22:28)
[2022-07-14] VITALS: BP 104/55
[2022-07-14 04:00] VITALS: BP 99/52
[2022-07-14] MEDS: OXYCODONE HCL 10MG TABLET SR 12HR PO SCH ×3 (04:15→20:06)
[2022-07-14] MEDS ORDERED: VANCOMYCIN 1.25GM PMX (XELLIA) 250 ML IV SCH (06:00)
[2022-07-14 06:56] LABS: CHLORIDE 104 mEq/L (98-107)
[2022-07-14] MEDS: GABAPENTIN 300MG CAPSULE PO SCH ×2 (06:56→14:15)
[2022-07-14] MEDS: CARISOPRODOL 350 MG TABLET PO SCH ×2 (06:57→14:15)
[2022-07-14 08:00] VITALS: BP 112/64
[2022-07-14] MEDS: AMLODIPINE 5MG TABLET PO SCH ×2 (09:00→20:06)
[2022-07-14] MEDS: PIPERACILLIN/TAZOBACTAM 3.375 G in DEXTROSE 5% WATER 50 ML IV SCH ×2 (09:36→14:15)
[2022-07-14] MEDS: ENOXAPARIN 120MG/0.8ML SYR SUBCUT SCH ×2 (09:37→20:07)
[2022-07-14] MEDS: FOLIC ACID 1MG TABLET PO SCH (09:38)
[2022-07-14] MEDS: TAMSULOSIN HCL 0.4MG SR CAPSULE PO SCH (09:38)
[2022-07-14 12:08] VITALS: BP 124/62
[2022-07-14] MEDS ORDERED: SORBITOL 70% SOLN 30ML PO NR (13:45)
[2022-07-14] MEDS ORDERED: POLYETHYLENE GLYCOL 3350 (17GM) 1 DOSE PACK PO SCH (14:00)
[2022-07-14 16:00] VITALS: BP 124/59
[2022-07-14] MEDS ORDERED: DOCUSATE SODIUM 100MG CAPSULE PO SCH (17:00)
[2022-07-14] MEDS: HYDROMORPHONE HCL/PF 2MG/ML CPJ IV PRN (18:08)
[2022-07-14 20:06] VITALS: BP 124/59
[2022-07-14] MEDS: QUETIAPINE FUMARATE 25MG TABLET PO SCH (20:06)
== END 2022-07-14 21:20 | DRG 919 ==
LOC: 6EST 12:08
PROVIDERS: ADMIT Internal Medicine Nephrology; ATTEND Internal Medicine Nephrology
DX: G97.63 Postprocedural seroma of a nervous system organ or structure following a nervous system procedure (principal); G82.50 Quadriplegia, unspecified; G95.20 Unspecified cord compression; I82.502 Chronic embolism and thrombosis of unspecified deep veins of left lower extremity; E44.0 Moderate protein-calorie malnutrition; M48.04 Spinal stenosis, thoracic region; M48.061 Spinal stenosis, lumbar region without neurogenic claudication; Z20.822 Contact with and (suspected) exposure to COVID-19; E61.1 Iron deficiency; J43.9 Emphysema, unspecified; R53.81 Other malaise; G89.4 Chronic pain syndrome; I10 Essential (primary) hypertension; E53.8 Deficiency of other specified B group vitamins; F17.200 Nicotine dependence, unspecified, uncomplicated; R26.9 Unspecified abnormalities of gait and mobility; R91.8 Other nonspecific abnormal finding of lung field; D64.9 Anemia, unspecified; M47.9 Spondylosis, unspecified; M50.30 Other cervical disc degeneration, unspecified cervical region; Z79.899 Other long term (current) drug therapy; Z79.01 Long term (current) use of anticoagulants; Z98.1 Arthrodesis status; Z86.711 Personal history of pulmonary embolism; Z68.32 Body mass index [BMI] 32.0-32.9, adult; Y83.8 Other surgical procedures as the cause of abnormal reaction of the patient, or of later complication, without mention of misadventure at the time of the procedure; Y92.89 Other specified places as the place of occurrence of the external cause
CPT/HCPCS: 36415; 71045; 72141; 72146; 80048; 80202; 85025; 85651; 87426; 92523; 93005; 93306; 93970; 94640; 97162; 97166; 97535; J1170; J1650; J2060; J2270; J2543; J3370; J7060; J7626

== ENCOUNTER 2022-07-14 21:45 | Inpatient (IN) | payer MEDICARE, OTHER ==
[~2022-07-14] VITALS: Ht 188 cm; Wt 113.4 kg
[2022-07-14 21:45] VITALS: BP 102/56
[2022-07-15] MEDS ORDERED: ACETAMINOPHEN 325MG TABLET PO PRN
[2022-07-15] MEDS ORDERED: ZOLPIDEM TARTRATE 5MG TABLET PO PRN
[2022-07-15] MEDS ORDERED: NALOXONE HCL 0.4 MG/ML 1ML VIAL IV PRN
[2022-07-15] MEDS ORDERED: ONDANSETRON HCL 4MG/2ML INJ IV PRN
[2022-07-15] MEDS ORDERED: DOCUSATE SODIUM 100MG CAPSULE PO SCH (00:30)
[2022-07-15] MEDS ORDERED: LORAZEPAM 2MG/ML CPJ IV PRN (00:30)
[2022-07-15] MEDS ORDERED: GABAPENTIN 300MG CAPSULE PO SCH (00:30)
[2022-07-15] MEDS ORDERED: CARISOPRODOL 350 MG TABLET PO SCH (00:30)
[2022-07-15] MEDS ORDERED: CLONIDINE 0.1MG TABLET PO PRN (02:00)
[2022-07-15] MEDS ORDERED: HYDROMORPHONE HCL/PF 2MG/ML CPJ IV PRN (02:00)
[2022-07-15] MEDS ORDERED: VANCOMYCIN 1G PREMIX 200 ML IV SCH (04:00)
[2022-07-15] MEDS ORDERED: VANCOMYCIN 1.25GM PMX (XELLIA) 250 ML IV SCH (04:00)
[2022-07-15] MEDS: CARISOPRODOL 350 MG TABLET PO SCH ×3 (05:39→21:23)
[2022-07-15] MEDS: GABAPENTIN 300MG CAPSULE PO SCH ×3 (05:39→21:20)
[2022-07-15] MEDS: OXYCODONE HCL 10MG TABLET SR 12HR PO SCH ×3 (05:43→23:15)
[2022-07-15] MEDS ORDERED: PIPERACILLIN/TAZOBACTAM 3.375 G in DEXTROSE 5% WATER 50 ML IV SCH (06:00)
[2022-07-15 08:00] VITALS: BP 116/73
[2022-07-15 08:47] LABS: HEMATOCRIT. 26.5 % (42.0-52.0); HEMOGLOBIN. 8.8 g/dL (14.0-18.0); MEAN CORPUSCULAR HEMOGLOBIN 35.1 pg (28.0-32.0); MEAN CORPUSCULAR VOLUME 105.7 fL (80.0-94.0); MEAN PLATELET VOLUME 8.1 fl (7.4-10.4); PLATELET 286 x1000/uL (130-400); RED BLOOD CELL COUNT 2.51 mill/uL (4.7-6.1); RED CELL DISTRIBUTION WIDTH 16.7 % (11.6-14.6)
[2022-07-15 08:58] LABS: CHLORIDE 102 mEq/L (98-107)
[2022-07-15] MEDS: ENOXAPARIN 120MG/0.8ML SYR SUBCUT SCH ×2 (09:09→21:20)
[2022-07-15] MEDS: TAMSULOSIN HCL 0.4MG SR CAPSULE PO SCH (09:09)
[2022-07-15] MEDS: DOCUSATE SODIUM 100MG CAPSULE PO SCH ×2 (09:09→17:00)
[2022-07-15] MEDS: FOLIC ACID 1MG TABLET PO SCH (09:09)
[2022-07-15] MEDS: AMLODIPINE 5MG TABLET PO SCH ×2 (09:10→20:20)
[2022-07-15 12:00] VITALS: BP 102/57
[2022-07-15] MEDS: NICOTINE 14MG PATCH TD SCH (12:21)
[2022-07-15] MEDS ORDERED: HYDROCODONE/ACETAMINOPHEN 10/325MG TABLET PO PRN (13:45)
[2022-07-15] MEDS: POLYETHYLENE GLYCOL 3350 (17GM) 1 DOSE PACK PO SCH (14:00)
[2022-07-15 14:40] LABS: PLATELET ESTIMATE NORMAL
[2022-07-15 16:00] VITALS: BP 110/59
[2022-07-15] MEDS ORDERED: VANCOMYCIN 1250MG in DEXTROSE 5% WATER 250ML IV SCH (18:00)
[2022-07-15 20:00] VITALS: BP 93/43
[2022-07-15] MEDS: QUETIAPINE FUMARATE 25MG TABLET PO SCH (21:19)
[2022-07-15] MEDS ORDERED: IPRATROPIUM/ALBUTEROL 0.5-3(2.5)MG/3ML NEB HHN PRN (22:00)
[2022-07-16] MEDS: CARISOPRODOL 350 MG TABLET PO SCH ×3 (05:06→21:36)
[2022-07-16] MEDS: GABAPENTIN 300MG CAPSULE PO SCH ×3 (05:06→21:34)
[2022-07-16] MEDS: OXYCODONE HCL 10MG TABLET SR 12HR PO SCH ×3 (06:23→23:05)
[2022-07-16 08:00] VITALS: BP 102/56
[2022-07-16] MEDS: AMLODIPINE 5MG TABLET PO SCH ×2 (09:00→21:00)
[2022-07-16] MEDS: POLYETHYLENE GLYCOL 3350 (17GM) 1 DOSE PACK PO SCH (09:00)
[2022-07-16] MEDS: DOCUSATE SODIUM 100MG CAPSULE PO SCH ×2 (09:05→16:23)
[2022-07-16] MEDS: TAMSULOSIN HCL 0.4MG SR CAPSULE PO SCH (09:06)
[2022-07-16] MEDS: FOLIC ACID 1MG TABLET PO SCH ×2 (09:06→13:26)
[2022-07-16] MEDS: ENOXAPARIN 120MG/0.8ML SYR SUBCUT SCH (09:06)
[2022-07-16] MEDS: NICOTINE 14MG PATCH TD SCH (09:07)
[2022-07-16] MEDS: CYANOCOBALAMIN 1000MCG/ML VIAL IM SCH (13:27)
[2022-07-16] MEDS ORDERED: ERGOCALCIFEROL 50000UNITS CAPSULE PO SCH (13:30)
[2022-07-16] MEDS: METOCLOPRAMIDE HCL 10MG/2ML VIAL IV SCH ×3 (13:35→21:32)
[2022-07-16] MEDS: BISACODYL 5MG TABLET PO SCH ×3 (13:36→21:33)
[2022-07-16] MEDS: SORBITOL 70% SOLN 30ML PO SCH ×3 (13:36→21:35)
[2022-07-16 17:22] LABS: BASOPHILS % 0.7 % (0.0-2.0); EOSINOPHILS % 2.9 % (0.0-5.0); HEMATOCRIT. 25.9 % (42.0-52.0); HEMOGLOBIN. 8.6 g/dL (14.0-18.0); LYMPHOCYTES % 20.8 % (20.0-50.0); MEAN CORPUSCULAR HEMOGLOBIN 34.6 pg (28.0-32.0); MEAN CORPUSCULAR VOLUME 104.1 fL (80.0-94.0); MEAN PLATELET VOLUME 8.3 fl (7.4-10.4); MONOCYTES % 13.7 % (2.0-8.0); NEUTROPHILS % 61.9 % (40.0-76.0); PLATELET 343 x1000/uL (130-400); RED BLOOD CELL COUNT 2.49 mill/uL (4.7-6.1); RED CELL DISTRIBUTION WIDTH 16.6 % (11.6-14.6)
[2022-07-16 17:30] LABS: PROTHROMBIN TIME 10.9 sec (9.6-11.0)
[2022-07-16 17:45] LABS: CHLORIDE 103 mEq/L (98-107)
[2022-07-16 17:52] LABS: TOTAL IRON BINDING CAPACITY 127 ug/dL (250-450)
[2022-07-16 18:13] LABS: FOLIC ACID (FOLATE) SERUM >20 ng/mL ng/mL (>5.38); VITAMIN B12 SERUM >2000 pg/mL pg/mL (211-911)
[2022-07-16 18:36] LABS: FERRITIN 348 ng/mL (22-322)
[2022-07-16 20:00] VITALS: BP 109/57
[2022-07-16] MEDS: PANTOPRAZOLE SODIUM 40 MG/VIAL IV SCH (21:36)
[2022-07-16] MEDS: QUETIAPINE FUMARATE 25MG TABLET PO SCH (21:36)
[2022-07-17] MEDS: METOCLOPRAMIDE HCL 10MG/2ML VIAL IV SCH (00:26)
[2022-07-17] MEDS: BISACODYL 5MG TABLET PO SCH (00:27)
[2022-07-17] MEDS: SORBITOL 70% SOLN 30ML PO SCH (00:27)
[2022-07-17] MEDS: OXYCODONE HCL 10MG TABLET SR 12HR PO SCH ×2 (05:02→14:28)
[2022-07-17 05:04] LABS: BASOPHILS % 0.4 % (0.0-2.0); EOSINOPHILS % 2.7 % (0.0-5.0); HEMATOCRIT. 26.2 % (42.0-52.0); HEMOGLOBIN. 8.8 g/dL (14.0-18.0); LYMPHOCYTES % 28.4 % (20.0-50.0); MEAN CORPUSCULAR HEMOGLOBIN 34.8 pg (28.0-32.0); MEAN CORPUSCULAR VOLUME 103.9 fL (80.0-94.0); MONOCYTES % 14.9 % (2.0-8.0); NEUTROPHILS % 53.6 % (40.0-76.0); PLATELET 390 x1000/uL (130-400); RED BLOOD CELL COUNT 2.53 mill/uL (4.7-6.1); RED CELL DISTRIBUTION WIDTH 16.7 % (11.6-14.6)
[2022-07-17 05:12] LABS: CHLORIDE 107 mEq/L (98-107)
[2022-07-17 05:17] LABS: PROTHROMBIN TIME 10.9 sec (9.6-11.0)
[2022-07-17] MEDS: CARISOPRODOL 350 MG TABLET PO SCH (06:00)
[2022-07-17] MEDS: GABAPENTIN 300MG CAPSULE PO SCH ×2 (06:00→14:28)
[2022-07-17 08:00] VITALS: BP 101/45
[2022-07-17] MEDS ORDERED: DEXT 5%/0.45% NACL 1000ML 1,000 ML IV SCH (08:15)
[2022-07-17] MEDS: CYANOCOBALAMIN 1000MCG/ML VIAL IM SCH (08:31)
[2022-07-17] MEDS: FOLIC ACID 1MG TABLET PO SCH ×2 (08:32)
[2022-07-17] MEDS: DOCUSATE SODIUM 100MG CAPSULE PO SCH (08:32)
[2022-07-17] MEDS: TAMSULOSIN HCL 0.4MG SR CAPSULE PO SCH (08:32)
[2022-07-17] MEDS: AMLODIPINE 5MG TABLET PO SCH (08:33)
[2022-07-17] MEDS: POLYETHYLENE GLYCOL 3350 (17GM) 1 DOSE PACK PO SCH (08:33)
[2022-07-17] MEDS: NICOTINE 14MG PATCH TD SCH (09:00)
[2022-07-17] MEDS ORDERED: IRON SUCROSE COMPLEX 100 MG/5 ML ML IV SCH (09:00)
[2022-07-17] MEDS ORDERED: MIDAZOLAM HCL 2 MG/2 ML VIAL ONE ×2 (10:01)
[2022-07-17] MEDS ORDERED: PROPOFOL 200MG/20ML VIAL IV ONE (10:02)
[2022-07-17] MEDS ORDERED: LIDOCAINE HCL 1% 10 MG/ML 10ML VIAL ONE (10:02)
[2022-07-17] MEDS ORDERED: EPHEDRINE SULFATE 50MG/ML VIAL ONE (10:02)
[2022-07-17] MEDS: PANTOPRAZOLE SODIUM 40 MG/VIAL IV SCH (10:03)
[2022-07-17] MEDS ORDERED: SIMETHICONE 40 MG/0.6 ML 15ML ONE (10:07)
[2022-07-17 11:45] LABS: BG BASE EXCESS 0.9 mmol/L (-2.0-2.0); BG CARBOXYHEMOGLOBIN 0.9 % (0.5-1.5); BG FRACTION INSPIRED OXYGEN 21; BG METHEMOGLOBIN 0.3 % (0.0-1.5); BG OXYGEN SATURATION 94.9 % (92.0-98.5); BG OXYHEMOGLOBIN 93.8 % (94.0-97.0); BG PCO2 37.5 mmHg (35.0-45.0); BG PH 7.442 (7.350-7.450); BG SAMPLE SITE LEFT BRACHIAL; BG TOTAL HEMOGLOBIN 8.9 g/dL (12.0-18.0); BG VENT MODE ROOM AIR
[2022-07-17 12:15] VITALS: BP 119/47
[2022-07-17] MEDS ORDERED: CARISOPRODOL 350 MG TABLET PO SCH ×2 (14:00→17:00)
== END 2022-07-17 14:45 | disposition short-term general hospital (02) | DRG 551 ==
PROVIDERS: ADMIT Physical Medicine & Rehabilitation Spinal Cord Injury Medicine; ATTEND Internal Medicine Nephrology
DX: M48.04 Spinal stenosis, thoracic region (principal); G82.50 Quadriplegia, unspecified; G93.41 Metabolic encephalopathy; G95.20 Unspecified cord compression; I82.502 Chronic embolism and thrombosis of unspecified deep veins of left lower extremity; I44.2 Atrioventricular block, complete; I82.433 Acute embolism and thrombosis of popliteal vein, bilateral; E87.1 Hypo-osmolality and hyponatremia; M48.02 Spinal stenosis, cervical region; M48.061 Spinal stenosis, lumbar region without neurogenic claudication; N40.0 Benign prostatic hyperplasia without lower urinary tract symptoms; R13.10 Dysphagia, unspecified; Z53.29 Procedure and treatment not carried out because of patient's decision for other reasons; M47.22 Other spondylosis with radiculopathy, cervical region; J43.9 Emphysema, unspecified; I10 Essential (primary) hypertension; G89.4 Chronic pain syndrome; E53.8 Deficiency of other specified B group vitamins; F17.210 Nicotine dependence, cigarettes, uncomplicated; I27.21 Secondary pulmonary arterial hypertension; M51.34 Other intervertebral disc degeneration, thoracic region; I44.0 Atrioventricular block, first degree; F14.10 Cocaine abuse, uncomplicated; R53.1 Weakness; L89.90 Pressure ulcer of unspecified site, unspecified stage; R53.81 Other malaise; D50.9 Iron deficiency anemia, unspecified; R26.89 Other abnormalities of gait and mobility; R00.1 Bradycardia, unspecified; R00.0 Tachycardia, unspecified; Z79.01 Long term (current) use of anticoagulants; Z82.49 Family history of ischemic heart disease and other diseases of the circulatory system; Z86.711 Personal history of pulmonary embolism; Z87.820 Personal history of traumatic brain injury; Z91.81 History of falling; Z98.1 Arthrodesis status; Z79.899 Other long term (current) drug therapy
CPT/HCPCS: 36415; 36600; 80048; 80053; 82270; 82375; 82607; 82728; 82746; 82805; 83540; 83550; 84134; 84443; 85025; 85044; 87426; 92523; 92610; 93005; 93970; 97110; 97116; 97162; 97166; 97530; 97535; C9113; J1650; J2250; J2543; J2704; J2765; J3370; J3420; J3490; J7060

== ENCOUNTER 2022-07-17 15:50 | Inpatient (IN) | payer MEDICARE, OTHER ==
[~2022-07-17] VITALS: Ht 188 cm; Wt 92.5 kg
[2022-07-17 14:45] VITALS: BP 107/49
[2022-07-17] MEDS ORDERED: OXYCODONE HCL 10MG TABLET SR 12HR PO SCH (17:15)
[2022-07-17] MEDS ORDERED: NALOXONE HCL 0.4 MG/ML 1ML VIAL IV PRN (18:30)
[2022-07-17] MEDS ORDERED: ACETAMINOPHEN 325MG TABLET PO PRN (18:30)
[2022-07-17] MEDS ORDERED: CLONIDINE 0.1MG TABLET PO PRN (18:30)
[2022-07-17] MEDS ORDERED: IPRATROPIUM/ALBUTEROL 0.5-3(2.5)MG/3ML NEB HHN PRN (18:30)
[2022-07-17] MEDS ORDERED: DEXT 5%/0.45% NACL 1000ML 1,000 ML IV SCH (18:30)
[2022-07-17] MEDS ORDERED: ONDANSETRON HCL 4MG/2ML INJ IV PRN (18:30)
[2022-07-17] MEDS ORDERED: LORAZEPAM 2MG/ML CPJ IV PRN (18:30)
[2022-07-17 20:00] VITALS: BP 104/47
[2022-07-17] MEDS: AMLODIPINE 5MG TABLET PO SCH (20:00)
[2022-07-17] MEDS: TAMSULOSIN HCL 0.4MG SR CAPSULE PO SCH (21:00)
[2022-07-17] MEDS: OXYCODONE HCL 10MG TABLET SR 12HR PO SCH (21:29)
[2022-07-17] MEDS: GABAPENTIN 300MG CAPSULE PO SCH (21:29)
[2022-07-17] MEDS: CARISOPRODOL 350 MG TABLET PO SCH (21:29)
[2022-07-17] MEDS: QUETIAPINE FUMARATE 25MG TABLET PO SCH (21:30)
[2022-07-17] MEDS: ENOXAPARIN 100MG/ML SYR SUBCUT SCH (21:31)
[2022-07-17] MEDS: THEOPHYLLINE ANHYDROUS 80 MG/15 ML 120ML PO SCH (21:32)
[2022-07-17 22:41] VITALS: BP 104/47
[2022-07-18 00:12] VITALS: BP 111/61
[2022-07-18 04:00] VITALS: BP 106/59
[2022-07-18] MEDS: OXYCODONE HCL 10MG TABLET SR 12HR PO SCH ×3 (05:16→22:10)
[2022-07-18] MEDS: GABAPENTIN 300MG CAPSULE PO SCH ×3 (05:16→21:07)
[2022-07-18] MEDS: CARISOPRODOL 350 MG TABLET PO SCH ×3 (05:16→21:07)
[2022-07-18 08:00] VITALS: BP 98/61
[2022-07-18] MEDS: AMLODIPINE 5MG TABLET PO SCH ×2 (09:00→21:06)
[2022-07-18] MEDS: DOCUSATE SODIUM 100MG CAPSULE PO SCH (09:12)
[2022-07-18] MEDS: PANTOPRAZOLE SODIUM 40 MG/VIAL IV SCH (09:12)
[2022-07-18] MEDS: IRON SUCROSE COMPLEX 100 MG/5 ML ML IV SCH (09:12)
[2022-07-18] MEDS: ENOXAPARIN 100MG/ML SYR SUBCUT SCH ×2 (09:13→21:07)
[2022-07-18] MEDS: FOLIC ACID 1MG TABLET PO SCH (09:13)
[2022-07-18] MEDS: POLYETHYLENE GLYCOL 3350 (17GM) 1 DOSE PACK PO SCH (09:13)
[2022-07-18] MEDS: THEOPHYLLINE ANHYDROUS 80 MG/15 ML 120ML PO SCH ×2 (09:14→17:17)
[2022-07-18] MEDS: NICOTINE 14MG PATCH TD SCH (09:14)
[2022-07-18 12:00] VITALS: BP 112/66
[2022-07-18 16:00] VITALS: BP 111/62
[2022-07-18 16:15] LABS: BASOPHILS % 0.6 % (0.0-2.0); EOSINOPHILS % 3.3 % (0.0-5.0); HEMATOCRIT. 24.7 % (42.0-52.0); HEMOGLOBIN. 8.2 g/dL (14.0-18.0); LYMPHOCYTES % 20.8 % (20.0-50.0); MEAN CORPUSCULAR HEMOGLOBIN 34.5 pg (28.0-32.0); MEAN CORPUSCULAR VOLUME 103.9 fL (80.0-94.0); MEAN PLATELET VOLUME 7.6 fl (7.4-10.4); MONOCYTES % 10.3 % (2.0-8.0); PLATELET 416 x1000/uL (130-400); RED BLOOD CELL COUNT 2.38 mill/uL (4.7-6.1)
[2022-07-18 16:37] LABS: CHLORIDE 105 mEq/L (98-107)
[2022-07-18 20:00] VITALS: BP 112/57
[2022-07-18] MEDS: TAMSULOSIN HCL 0.4MG SR CAPSULE PO SCH (21:05)
[2022-07-18] MEDS: QUETIAPINE FUMARATE 25MG TABLET PO SCH (21:06)
[2022-07-19] VITALS (7 sets, daily range): BP systolic 91–108; BP diastolic 41–62
[2022-07-19] MEDS: CARISOPRODOL 350 MG TABLET PO SCH ×3 (05:08→21:14)
[2022-07-19] MEDS: GABAPENTIN 300MG CAPSULE PO SCH ×3 (05:08→21:14)
[2022-07-19] MEDS: OXYCODONE HCL 10MG TABLET SR 12HR PO SCH ×3 (05:09→22:00)
[2022-07-19 06:16] LABS: BASOPHILS % 0.3 % (0.0-2.0); EOSINOPHILS % 3.9 % (0.0-5.0); HEMATOCRIT. 24.5 % (42.0-52.0); HEMOGLOBIN. 8.1 g/dL (14.0-18.0); LYMPHOCYTES % 38.3 % (20.0-50.0); MEAN CORPUSCULAR HEMOGLOBIN 34.4 pg (28.0-32.0); MEAN CORPUSCULAR VOLUME 103.6 fL (80.0-94.0); MEAN PLATELET VOLUME 7.5 fl (7.4-10.4); MONOCYTES % 12.5 % (2.0-8.0); PLATELET 393 x1000/uL (130-400); RED BLOOD CELL COUNT 2.36 mill/uL (4.7-6.1); RED CELL DISTRIBUTION WIDTH 17.5 % (11.6-14.6)
[2022-07-19 06:33] LABS: CHLORIDE 106 mEq/L (98-107)
[2022-07-19] MEDS: AMLODIPINE 5MG TABLET PO SCH ×2 (09:00→20:47)
[2022-07-19] MEDS: NICOTINE 14MG PATCH TD SCH (09:17)
[2022-07-19] MEDS: ENOXAPARIN 100MG/ML SYR SUBCUT SCH ×2 (09:18→21:15)
[2022-07-19] MEDS: IRON SUCROSE COMPLEX 100 MG/5 ML ML IV SCH (09:18)
[2022-07-19] MEDS: FOLIC ACID 1MG TABLET PO SCH (09:18)
[2022-07-19] MEDS: PANTOPRAZOLE SODIUM 40 MG/VIAL IV SCH (09:18)
[2022-07-19] MEDS: DOCUSATE SODIUM 100MG CAPSULE PO SCH (09:19)
[2022-07-19] MEDS: POLYETHYLENE GLYCOL 3350 (17GM) 1 DOSE PACK PO SCH (09:20)
[2022-07-19] MEDS: THEOPHYLLINE ANHYDROUS 80 MG/15 ML 120ML PO SCH ×2 (09:20→17:29)
[2022-07-19] MEDS: MAGNESIUM OXIDE 400MG TABLET PO SCH (12:43)
[2022-07-19] MEDS ORDERED: MAGNESIUM 2 G PREMIX 50 ML IV NR (14:00)
[2022-07-19] MEDS: TAMSULOSIN HCL 0.4MG SR CAPSULE PO SCH (21:00)
[2022-07-19] MEDS: QUETIAPINE FUMARATE 25MG TABLET PO SCH (21:15)
[2022-07-20] MEDS: ZOLPIDEM TARTRATE 5MG TABLET PO PRN
[2022-07-20 04:10] VITALS: BP 110/53
[2022-07-20] MEDS: OXYCODONE HCL 10MG TABLET SR 12HR PO SCH ×3 (04:18→21:52)
[2022-07-20] MEDS: GABAPENTIN 300MG CAPSULE PO SCH ×3 (05:31→21:52)
[2022-07-20] MEDS: CARISOPRODOL 350 MG TABLET PO SCH ×3 (05:31→21:52)
[2022-07-20 08:00] VITALS: BP 110/58
[2022-07-20 08:24] LABS: BASOPHILS % 0.8 % (0.0-2.0); EOSINOPHILS % 4.1 % (0.0-5.0); HEMATOCRIT. 23.1 % (42.0-52.0); HEMOGLOBIN. 7.6 g/dL (14.0-18.0); LYMPHOCYTES % 32.3 % (20.0-50.0); MEAN CORPUSCULAR HEMOGLOBIN 33.8 pg (28.0-32.0); MEAN CORPUSCULAR VOLUME 102.8 fL (80.0-94.0); MEAN PLATELET VOLUME 7.5 fl (7.4-10.4); MONOCYTES % 12.1 % (2.0-8.0); NEUTROPHILS % 50.7 % (40.0-76.0); PLATELET 417 x1000/uL (130-400); RED BLOOD CELL COUNT 2.25 mill/uL (4.7-6.1); RED CELL DISTRIBUTION WIDTH 17.3 % (11.6-14.6)
[2022-07-20 08:30] LABS: CHLORIDE 105 mEq/L (98-107)
[2022-07-20] MEDS: POLYETHYLENE GLYCOL 3350 (17GM) 1 DOSE PACK PO SCH (09:00)
[2022-07-20] MEDS: NICOTINE 14MG PATCH TD SCH (09:00)
[2022-07-20] MEDS: AMLODIPINE 5MG TABLET PO SCH ×2 (09:00→21:00)
[2022-07-20] MEDS: DOCUSATE SODIUM 100MG CAPSULE PO SCH (09:00)
[2022-07-20] MEDS: PANTOPRAZOLE SODIUM 40 MG/VIAL IV SCH (09:22)
[2022-07-20] MEDS: ENOXAPARIN 100MG/ML SYR SUBCUT SCH ×2 (09:22→21:51)
[2022-07-20] MEDS: MAGNESIUM OXIDE 400MG TABLET PO SCH (09:22)
[2022-07-20] MEDS: FOLIC ACID 1MG TABLET PO SCH (09:22)
[2022-07-20] MEDS: THEOPHYLLINE ANHYDROUS 80 MG/15 ML 120ML PO SCH ×3 (09:24→21:53)
[2022-07-20 12:00] VITALS: BP 120/65
[2022-07-20] MEDS: FERROUS SULFATE 325MG TABLET PO SCH ×2 (13:23→17:37)
[2022-07-20 16:00] VITALS: BP 119/58
[2022-07-20 20:00] VITALS: BP 104/66
[2022-07-20] MEDS: QUETIAPINE FUMARATE 25MG TABLET PO SCH (21:52)
[2022-07-20] MEDS: TAMSULOSIN HCL 0.4MG SR CAPSULE PO SCH (21:52)
[2022-07-21] VITALS: BP 121/65
[2022-07-21] MEDS: ZOLPIDEM TARTRATE 5MG TABLET PO PRN (03:15)
[2022-07-21 04:00] VITALS: BP 118/69
[2022-07-21] MEDS: THEOPHYLLINE ANHYDROUS 80 MG/15 ML 120ML PO SCH ×3 (05:48→21:09)
[2022-07-21] MEDS: GABAPENTIN 300MG CAPSULE PO SCH ×3 (05:48→21:08)
[2022-07-21] MEDS: CARISOPRODOL 350 MG TABLET PO SCH ×3 (05:48→21:08)
[2022-07-21] MEDS: OXYCODONE HCL 10MG TABLET SR 12HR PO SCH ×3 (05:49→21:08)
[2022-07-21 06:31] LABS: BASOPHILS % 0.8 % (0.0-2.0); HEMATOCRIT. 23.7 % (42.0-52.0); LYMPHOCYTES % 32.7 % (20.0-50.0); MEAN CORPUSCULAR HEMOGLOBIN 34.5 pg (28.0-32.0); MEAN CORPUSCULAR VOLUME 102.7 fL (80.0-94.0); MEAN PLATELET VOLUME 7.5 fl (7.4-10.4); MONOCYTES % 11.4 % (2.0-8.0); NEUTROPHILS % 51.1 % (40.0-76.0); PLATELET 431 x1000/uL (130-400); RED BLOOD CELL COUNT 2.31 mill/uL (4.7-6.1); RED CELL DISTRIBUTION WIDTH 17.2 % (11.6-14.6)
[2022-07-21 07:08] LABS: CHLORIDE 106 mEq/L (98-107)
[2022-07-21 08:00] VITALS: BP 112/58
[2022-07-21] MEDS: NICOTINE 14MG PATCH TD SCH (08:46)
[2022-07-21] MEDS: FERROUS SULFATE 325MG TABLET PO SCH ×3 (08:47→18:05)
[2022-07-21] MEDS: DOCUSATE SODIUM 100MG CAPSULE PO SCH (08:47)
[2022-07-21] MEDS: FOLIC ACID 1MG TABLET PO SCH (08:47)
[2022-07-21] MEDS: PANTOPRAZOLE SODIUM 40 MG/VIAL IV SCH (08:47)
[2022-07-21] MEDS: POLYETHYLENE GLYCOL 3350 (17GM) 1 DOSE PACK PO SCH (08:47)
[2022-07-21] MEDS: MAGNESIUM OXIDE 400MG TABLET PO SCH (08:47)
[2022-07-21] MEDS: ENOXAPARIN 100MG/ML SYR SUBCUT SCH (08:48)
[2022-07-21] MEDS: AMLODIPINE 5MG TABLET PO SCH ×2 (08:49→21:00)
[2022-07-21] MEDS: HYDROCODONE/ACETAMINOPHEN 10/325MG TABLET PO PRN (08:59)
[2022-07-21 10:03] LABS: INR 1.1; PARTIAL THROMBOPLASTIN TIME 34.6 sec (23.4-31.0); PROTHROMBIN TIME 11.4 sec (9.6-11.0)
[2022-07-21 11:49] VITALS: BP 98/56
[2022-07-21 16:00] VITALS: BP 105/57
[2022-07-21] MEDS: TAMSULOSIN HCL 0.4MG SR CAPSULE PO SCH (21:08)
[2022-07-21] MEDS: QUETIAPINE FUMARATE 25MG TABLET PO SCH (21:08)
[2022-07-22] VITALS: BP 129/79
[2022-07-22 04:00] VITALS: BP 106/56
[2022-07-22] MEDS: GABAPENTIN 300MG CAPSULE PO SCH ×3 (05:28→20:38)
[2022-07-22] MEDS: CARISOPRODOL 350 MG TABLET PO SCH ×3 (05:28→20:39)
[2022-07-22] MEDS: OXYCODONE HCL 10MG TABLET SR 12HR PO SCH ×3 (05:28→20:39)
[2022-07-22] MEDS: THEOPHYLLINE ANHYDROUS 80 MG/15 ML 120ML PO SCH ×3 (05:28→20:40)
[2022-07-22 06:55] LABS: BASOPHILS % 0.4 % (0.0-2.0); EOSINOPHILS % 3.6 % (0.0-5.0); HEMATOCRIT. 25.5 % (42.0-52.0); HEMOGLOBIN. 8.6 g/dL (14.0-18.0); LYMPHOCYTES % 32.3 % (20.0-50.0); MEAN CORPUSCULAR HEMOGLOBIN 34.6 pg (28.0-32.0); MEAN CORPUSCULAR VOLUME 102.9 fL (80.0-94.0); MEAN PLATELET VOLUME 7.3 fl (7.4-10.4); MONOCYTES % 10.6 % (2.0-8.0); NEUTROPHILS % 53.1 % (40.0-76.0); PLATELET 472 x1000/uL (130-400); RED BLOOD CELL COUNT 2.48 mill/uL (4.7-6.1); RED CELL DISTRIBUTION WIDTH 17.3 % (11.6-14.6)
[2022-07-22 07:35] LABS: CHLORIDE 104 mEq/L (98-107)
[2022-07-22 08:00] VITALS: BP 108/46
[2022-07-22] MEDS: AMLODIPINE 5MG TABLET PO SCH ×2 (09:00→20:43)
[2022-07-22] MEDS: NICOTINE 14MG PATCH TD SCH (09:00)
[2022-07-22] MEDS: PANTOPRAZOLE SODIUM 40 MG/VIAL IV SCH (09:03)
[2022-07-22] MEDS: DOCUSATE SODIUM 100MG CAPSULE PO SCH (09:03)
[2022-07-22] MEDS: FOLIC ACID 1MG TABLET PO SCH (09:03)
[2022-07-22] MEDS: MAGNESIUM OXIDE 400MG TABLET PO SCH (09:04)
[2022-07-22] MEDS: POLYETHYLENE GLYCOL 3350 (17GM) 1 DOSE PACK PO SCH (09:04)
[2022-07-22] MEDS: FERROUS SULFATE 325MG TABLET PO SCH ×3 (09:04→17:56)
[2022-07-22] MEDS: HYDROCODONE/ACETAMINOPHEN 10/325MG TABLET PO PRN (09:04)
[2022-07-22 12:00] VITALS: BP_SYST 110; BP_DIAS 54; BP_DIAS 59
[2022-07-22 16:00] VITALS: BP 88/95
[2022-07-22 19:59] VITALS: BP 100/52
[2022-07-22] MEDS: TAMSULOSIN HCL 0.4MG SR CAPSULE PO SCH (20:38)
[2022-07-22] MEDS: QUETIAPINE FUMARATE 25MG TABLET PO SCH (20:39)
[2022-07-23 00:01] VITALS: BP 99/53
[2022-07-23] MEDS: HYDROCODONE/ACETAMINOPHEN 10/325MG TABLET PO PRN (00:04)
[2022-07-23 04:00] VITALS: BP 101/50
[2022-07-23] MEDS: GABAPENTIN 300MG CAPSULE PO SCH ×3 (05:52→22:41)
[2022-07-23] MEDS: THEOPHYLLINE ANHYDROUS 80 MG/15 ML 120ML PO SCH ×3 (05:52→22:00)
[2022-07-23] MEDS: OXYCODONE HCL 10MG TABLET SR 12HR PO SCH ×3 (05:52→22:45)
[2022-07-23] MEDS: CARISOPRODOL 350 MG TABLET PO SCH ×3 (05:52→22:00)
[2022-07-23 07:43] LABS: BASOPHILS % 0.3 % (0.0-2.0); EOSINOPHILS % 2.7 % (0.0-5.0); HEMATOCRIT. 22.6 % (42.0-52.0); HEMOGLOBIN. 7.8 g/dL (14.0-18.0); LYMPHOCYTES % 37.3 % (20.0-50.0); MEAN CORPUSCULAR HEMOGLOBIN 35.2 pg (28.0-32.0); MEAN CORPUSCULAR VOLUME 102.3 fL (80.0-94.0); MEAN PLATELET VOLUME 7.3 fl (7.4-10.4); MONOCYTES % 12.2 % (2.0-8.0); NEUTROPHILS % 47.5 % (40.0-76.0); PLATELET 438 x1000/uL (130-400); RED BLOOD CELL COUNT 2.21 mill/uL (4.7-6.1); RED CELL DISTRIBUTION WIDTH 17.3 % (11.6-14.6)
[2022-07-23 07:51] LABS: CHLORIDE 102 mEq/L (98-107)
[2022-07-23 08:00] VITALS: BP 91/46
[2022-07-23] MEDS: MAGNESIUM OXIDE 400MG TABLET PO SCH (08:51)
[2022-07-23] MEDS: FOLIC ACID 1MG TABLET PO SCH (08:52)
[2022-07-23] MEDS: FERROUS SULFATE 325MG TABLET PO SCH ×3 (08:52→18:39)
[2022-07-23] MEDS: PANTOPRAZOLE SODIUM 40 MG/VIAL IV SCH (08:52)
[2022-07-23] MEDS: POLYETHYLENE GLYCOL 3350 (17GM) 1 DOSE PACK PO SCH (08:52)
[2022-07-23] MEDS: DOCUSATE SODIUM 100MG CAPSULE PO SCH (08:52)
[2022-07-23] MEDS: AMLODIPINE 5MG TABLET PO SCH ×2 (08:53→21:00)
[2022-07-23] MEDS: NICOTINE 14MG PATCH TD SCH (09:00)
[2022-07-23] MEDS ORDERED: ERGOCALCIFEROL 50000UNITS CAPSULE PO SCH (09:00)
[2022-07-23 11:48] VITALS: BP 92/45
[2022-07-23] MEDS: MIDODRINE HCL 5MG TABLET PO SCH ×2 (15:00→22:40)
[2022-07-23] MEDS: ASCORBIC ACID 500 MG TABLET PO SCH (15:00)
[2022-07-23 16:00] VITALS: BP 92/45
[2022-07-23] MEDS: TAMSULOSIN HCL 0.4MG SR CAPSULE PO SCH ×2 (21:00→22:40)
[2022-07-23] MEDS: QUETIAPINE FUMARATE 25MG TABLET PO SCH (22:41)
[2022-07-24 00:19] VITALS: BP 146/50
[2022-07-24 04:00] VITALS: BP 119/63
[2022-07-24] MEDS: MIDODRINE HCL 5MG TABLET PO SCH (06:09)
[2022-07-24] MEDS: GABAPENTIN 300MG CAPSULE PO SCH ×3 (06:09→21:50)
[2022-07-24] MEDS: OXYCODONE HCL 10MG TABLET SR 12HR PO SCH ×3 (06:09→21:49)
[2022-07-24] MEDS: CARISOPRODOL 350 MG TABLET PO SCH ×3 (06:09→21:51)
[2022-07-24] MEDS: THEOPHYLLINE ANHYDROUS 80 MG/15 ML 120ML PO SCH ×3 (06:12→22:04)
[2022-07-24 07:25] LABS: BASOPHILS % 0.9 % (0.0-2.0); EOSINOPHILS % 2.6 % (0.0-5.0); HEMATOCRIT. 28.9 % (42.0-52.0); HEMOGLOBIN. 9.4 g/dL (14.0-18.0); LYMPHOCYTES % 34.2 % (20.0-50.0); MEAN CORPUSCULAR HEMOGLOBIN 33.8 pg (28.0-32.0); MEAN CORPUSCULAR VOLUME 104.6 fL (80.0-94.0); MEAN PLATELET VOLUME 7.2 fl (7.4-10.4); MONOCYTES % 11.5 % (2.0-8.0); NEUTROPHILS % 50.8 % (40.0-76.0); PLATELET 477 x1000/uL (130-400); RED BLOOD CELL COUNT 2.77 mill/uL (4.7-6.1); RED CELL DISTRIBUTION WIDTH 17.6 % (11.6-14.6)
[2022-07-24 07:47] LABS: CHLORIDE 103 mEq/L (98-107)
[2022-07-24 08:00] VITALS: BP 102/54
[2022-07-24] MEDS: DOCUSATE SODIUM 100MG CAPSULE PO SCH (08:49)
[2022-07-24] MEDS: PANTOPRAZOLE SODIUM 40 MG/VIAL IV SCH (08:49)
[2022-07-24] MEDS: CYANOCOBALAMIN 1000MCG TABLET PO SCH (08:49)
[2022-07-24] MEDS: FOLIC ACID 1MG TABLET PO SCH (08:49)
[2022-07-24] MEDS: ASCORBIC ACID 500 MG TABLET PO SCH (08:49)
[2022-07-24] MEDS: FERROUS SULFATE 325MG TABLET PO SCH ×3 (08:49→17:43)
[2022-07-24] MEDS: POLYETHYLENE GLYCOL 3350 (17GM) 1 DOSE PACK PO SCH (08:49)
[2022-07-24] MEDS: MAGNESIUM OXIDE 400MG TABLET PO SCH (08:50)
[2022-07-24] MEDS: NICOTINE 14MG PATCH TD SCH (08:50)
[2022-07-24] MEDS: AMLODIPINE 5MG TABLET PO SCH ×2 (08:50→21:00)
[2022-07-24 12:00] VITALS: BP 103/50
[2022-07-24] MEDS: APIXABAN 5 MG TABLET PO SCH ×2 (14:10→17:43)
[2022-07-24] MEDS: MIDODRINE HCL 2.5MG TABLET PO SCH ×2 (14:13→21:50)
[2022-07-24 16:00] VITALS: BP 103/42
[2022-07-24] MEDS: HYDROCODONE/ACETAMINOPHEN 10/325MG TABLET PO PRN ×2 (17:43→21:51)
[2022-07-24 20:00] VITALS: BP 111/49
[2022-07-24] MEDS: QUETIAPINE FUMARATE 25MG TABLET PO SCH (21:50)
[2022-07-24] MEDS: TAMSULOSIN HCL 0.4MG SR CAPSULE PO SCH (21:50)
[2022-07-25 00:23] VITALS: BP 97/47
[2022-07-25 04:00] VITALS: BP 115/60
[2022-07-25] MEDS: HYDROCODONE/ACETAMINOPHEN 10/325MG TABLET PO PRN ×2 (05:21→20:18)
[2022-07-25] MEDS: MIDODRINE HCL 2.5MG TABLET PO SCH ×3 (06:57→22:15)
[2022-07-25] MEDS: CARISOPRODOL 350 MG TABLET PO SCH ×3 (06:57→22:14)
[2022-07-25] MEDS: GABAPENTIN 300MG CAPSULE PO SCH ×3 (06:57→22:14)
[2022-07-25] MEDS: THEOPHYLLINE ANHYDROUS 80 MG/15 ML 120ML PO SCH ×3 (06:58→22:14)
[2022-07-25] MEDS: OXYCODONE HCL 10MG TABLET SR 12HR PO SCH ×3 (06:58→22:15)
[2022-07-25 07:30] LABS: CHLORIDE 98 mEq/L (98-107)
[2022-07-25 08:00] VITALS: BP 109/43
[2022-07-25 08:00] LABS: BASOPHILS % 0.6 % (0.0-2.0); EOSINOPHILS % 1.8 % (0.0-5.0); HEMATOCRIT. 28.2 % (42.0-52.0); HEMOGLOBIN. 9.2 g/dL (14.0-18.0); MEAN CORPUSCULAR HEMOGLOBIN 33.5 pg (28.0-32.0); MEAN CORPUSCULAR VOLUME 102.2 fL (80.0-94.0); MEAN PLATELET VOLUME 7.8 fl (7.4-10.4); MONOCYTES % 12.7 % (2.0-8.0); NEUTROPHILS % 61.9 % (40.0-76.0); PLATELET 445 x1000/uL (130-400); RED BLOOD CELL COUNT 2.76 mill/uL (4.7-6.1); RED CELL DISTRIBUTION WIDTH 17.5 % (11.6-14.6)
[2022-07-25] MEDS: AMLODIPINE 5MG TABLET PO SCH ×2 (09:00→20:18)
[2022-07-25] MEDS: NICOTINE 14MG PATCH TD SCH (10:06)
[2022-07-25] MEDS: FERROUS SULFATE 325MG TABLET PO SCH ×3 (10:07→18:17)
[2022-07-25] MEDS: CYANOCOBALAMIN 1000MCG TABLET PO SCH (10:07)
[2022-07-25] MEDS: POLYETHYLENE GLYCOL 3350 (17GM) 1 DOSE PACK PO SCH (10:07)
[2022-07-25] MEDS: PANTOPRAZOLE SODIUM 40 MG/VIAL IV SCH (10:07)
[2022-07-25] MEDS: APIXABAN 5 MG TABLET PO SCH ×2 (10:08→18:17)
[2022-07-25] MEDS: DOCUSATE SODIUM 100MG CAPSULE PO SCH (10:08)
[2022-07-25] MEDS: ASCORBIC ACID 500 MG TABLET PO SCH (10:09)
[2022-07-25] MEDS: FOLIC ACID 1MG TABLET PO SCH (10:09)
[2022-07-25] MEDS: MAGNESIUM OXIDE 400MG TABLET PO SCH (10:11)
[2022-07-25 12:00] VITALS: BP 116/52
[2022-07-25 16:00] VITALS: BP 110/53
[2022-07-25 20:00] VITALS: BP 107/65
[2022-07-25] MEDS: TAMSULOSIN HCL 0.4MG SR CAPSULE PO SCH (20:17)
[2022-07-25] MEDS: QUETIAPINE FUMARATE 25MG TABLET PO SCH (20:18)
[2022-07-25] MEDS ORDERED: ZOLPIDEM TARTRATE 5MG TABLET PO PRN (21:00)
[2022-07-26] VITALS: BP 106/48
[2022-07-26] MEDS: HYDROCODONE/ACETAMINOPHEN 10/325MG TABLET PO PRN (01:22)
[2022-07-26 04:00] VITALS: BP 104/51
[2022-07-26] MEDS: THEOPHYLLINE ANHYDROUS 80 MG/15 ML 120ML PO SCH ×3 (05:22→21:46)
[2022-07-26] MEDS: CARISOPRODOL 350 MG TABLET PO SCH ×3 (05:22→21:44)
[2022-07-26] MEDS: MIDODRINE HCL 2.5MG TABLET PO SCH ×3 (05:23→21:04)
[2022-07-26] MEDS: GABAPENTIN 300MG CAPSULE PO SCH ×3 (05:23→21:03)
[2022-07-26] MEDS: OXYCODONE HCL 10MG TABLET SR 12HR PO SCH ×3 (05:24→21:07)
[2022-07-26 07:42] LABS: BASOPHILS % 0.6 % (0.0-2.0); EOSINOPHILS % 1.1 % (0.0-5.0); HEMATOCRIT. 27.5 % (42.0-52.0); LYMPHOCYTES % 22.5 % (20.0-50.0); MEAN CORPUSCULAR HEMOGLOBIN 33.2 pg (28.0-32.0); MEAN PLATELET VOLUME 7.2 fl (7.4-10.4); MONOCYTES % 13.5 % (2.0-8.0); NEUTROPHILS % 62.3 % (40.0-76.0); PLATELET 422 x1000/uL (130-400); RED BLOOD CELL COUNT 2.72 mill/uL (4.7-6.1); RED CELL DISTRIBUTION WIDTH 17.4 % (11.6-14.6)
[2022-07-26 07:59] LABS: CHLORIDE 100 mEq/L (98-107)
[2022-07-26 08:00] VITALS: BP 96/57
[2022-07-26] MEDS: AMLODIPINE 5MG TABLET PO SCH ×2 (09:00→21:05)
[2022-07-26] MEDS: DOCUSATE SODIUM 100MG CAPSULE PO SCH (10:42)
[2022-07-26] MEDS: ASCORBIC ACID 500 MG TABLET PO SCH (10:42)
[2022-07-26] MEDS: POLYETHYLENE GLYCOL 3350 (17GM) 1 DOSE PACK PO SCH (10:42)
[2022-07-26] MEDS: FOLIC ACID 1MG TABLET PO SCH (10:42)
[2022-07-26] MEDS: FERROUS SULFATE 325MG TABLET PO SCH ×3 (10:43→18:40)
[2022-07-26] MEDS: MAGNESIUM OXIDE 400MG TABLET PO SCH (10:43)
[2022-07-26] MEDS: PANTOPRAZOLE SODIUM 40 MG/VIAL IV SCH (10:44)
[2022-07-26] MEDS: APIXABAN 5 MG TABLET PO SCH ×2 (10:44→18:40)
[2022-07-26] MEDS: CYANOCOBALAMIN 1000MCG TABLET PO SCH (10:45)
[2022-07-26] MEDS: NICOTINE 14MG PATCH TD SCH (10:47)
[2022-07-26 12:00] VITALS: BP 123/57
[2022-07-26 16:00] VITALS: BP 108/55
[2022-07-26 20:00] VITALS: BP 116/59
[2022-07-26] MEDS: QUETIAPINE FUMARATE 25MG TABLET PO SCH (21:05)
[2022-07-26] MEDS: TAMSULOSIN HCL 0.4MG SR CAPSULE PO SCH (21:08)
[2022-07-27] VITALS: BP 107/55
[2022-07-27 04:00] VITALS: BP 103/56
[2022-07-27] MEDS: GABAPENTIN 300MG CAPSULE PO SCH ×3 (05:47→20:14)
[2022-07-27] MEDS: CARISOPRODOL 350 MG TABLET PO SCH ×3 (05:47→20:13)
[2022-07-27] MEDS: MIDODRINE HCL 2.5MG TABLET PO SCH ×3 (05:48→20:14)
[2022-07-27] MEDS: OXYCODONE HCL 10MG TABLET SR 12HR PO SCH ×3 (05:49→20:13)
[2022-07-27] MEDS: THEOPHYLLINE ANHYDROUS 80 MG/15 ML 120ML PO SCH ×3 (05:50→20:16)
[2022-07-27 08:00] VITALS: BP 108/51
[2022-07-27] MEDS: AMLODIPINE 5MG TABLET PO SCH ×2 (09:00→20:14)
[2022-07-27] MEDS: PANTOPRAZOLE SODIUM 40 MG/VIAL IV SCH (10:04)
[2022-07-27] MEDS: FERROUS SULFATE 325MG TABLET PO SCH ×3 (10:05→17:27)
[2022-07-27] MEDS: CYANOCOBALAMIN 1000MCG TABLET PO SCH (10:05)
[2022-07-27] MEDS: DOCUSATE SODIUM 100MG CAPSULE PO SCH (10:05)
[2022-07-27] MEDS: MAGNESIUM OXIDE 400MG TABLET PO SCH (10:05)
[2022-07-27] MEDS: ASCORBIC ACID 500 MG TABLET PO SCH (10:05)
[2022-07-27] MEDS: FOLIC ACID 1MG TABLET PO SCH (10:05)
[2022-07-27] MEDS: POLYETHYLENE GLYCOL 3350 (17GM) 1 DOSE PACK PO SCH (10:05)
[2022-07-27] MEDS: APIXABAN 5 MG TABLET PO SCH ×2 (10:05→17:27)
[2022-07-27] MEDS: NICOTINE 14MG PATCH TD SCH (10:06)
[2022-07-27 12:00] VITALS: BP 104/53
[2022-07-27 16:00] VITALS: BP 116/58
[2022-07-27] MEDS: HYDROCODONE/ACETAMINOPHEN 10/325MG TABLET PO PRN (17:27)
[2022-07-27 20:00] VITALS: BP 106/58
[2022-07-27] MEDS: TAMSULOSIN HCL 0.4MG SR CAPSULE PO SCH (20:14)
[2022-07-27] MEDS: QUETIAPINE FUMARATE 25MG TABLET PO SCH (20:14)
[2022-07-28 00:04] VITALS: BP 110/56
[2022-07-28] MEDS: HYDROCODONE/ACETAMINOPHEN 10/325MG TABLET PO PRN (03:02)
[2022-07-28 04:00] VITALS: BP 112/59
[2022-07-28] MEDS: MIDODRINE HCL 2.5MG TABLET PO SCH ×3 (05:08→20:11)
[2022-07-28] MEDS: OXYCODONE HCL 10MG TABLET SR 12HR PO SCH ×3 (05:08→20:11)
[2022-07-28] MEDS: CARISOPRODOL 350 MG TABLET PO SCH ×3 (05:08→20:11)
[2022-07-28] MEDS: THEOPHYLLINE ANHYDROUS 80 MG/15 ML 120ML PO SCH ×3 (05:09→20:12)
[2022-07-28] MEDS: GABAPENTIN 300MG CAPSULE PO SCH ×3 (05:09→20:11)
[2022-07-28 06:49] LABS: BASOPHILS % 0.4 % (0.0-2.0); HEMATOCRIT. 24.9 % (42.0-52.0); HEMOGLOBIN. 8.3 g/dL (14.0-18.0); LYMPHOCYTES % 16.9 % (20.0-50.0); MEAN CORPUSCULAR HEMOGLOBIN 33.2 pg (28.0-32.0); MEAN CORPUSCULAR VOLUME 99.6 fL (80.0-94.0); MEAN PLATELET VOLUME 7.7 fl (7.4-10.4); MONOCYTES % 12.9 % (2.0-8.0); NEUTROPHILS % 68.8 % (40.0-76.0); PLATELET 379 x1000/uL (130-400); RED CELL DISTRIBUTION WIDTH 18.2 % (11.6-14.6)
[2022-07-28 08:00] VITALS: BP 120/55
[2022-07-28] MEDS: APIXABAN 5 MG TABLET PO SCH ×2 (08:42→17:27)
[2022-07-28] MEDS: PANTOPRAZOLE SODIUM 40 MG/VIAL IV SCH (08:42)
[2022-07-28] MEDS: FOLIC ACID 1MG TABLET PO SCH (08:42)
[2022-07-28] MEDS: DOCUSATE SODIUM 100MG CAPSULE PO SCH (08:42)
[2022-07-28] MEDS: MAGNESIUM OXIDE 400MG TABLET PO SCH (08:42)
[2022-07-28] MEDS: ASCORBIC ACID 500 MG TABLET PO SCH (08:42)
[2022-07-28] MEDS: NICOTINE 14MG PATCH TD SCH (08:43)
[2022-07-28] MEDS: CYANOCOBALAMIN 1000MCG TABLET PO SCH (08:43)
[2022-07-28] MEDS: FERROUS SULFATE 325MG TABLET PO SCH ×3 (08:43→17:28)
[2022-07-28] MEDS: AMLODIPINE 5MG TABLET PO SCH ×2 (08:43→20:11)
[2022-07-28] MEDS: POLYETHYLENE GLYCOL 3350 (17GM) 1 DOSE PACK PO SCH (09:00)
[2022-07-28 10:29] LABS: CHLORIDE 97 mEq/L (98-107)
[2022-07-28 12:00] VITALS: BP 113/52
[2022-07-28 16:00] VITALS: BP 143/79
[2022-07-28 20:00] VITALS: BP 107/57
[2022-07-28] MEDS: TAMSULOSIN HCL 0.4MG SR CAPSULE PO SCH (20:11)
[2022-07-28] MEDS: QUETIAPINE FUMARATE 25MG TABLET PO SCH (20:11)
[2022-07-29] VITALS: BP 96/57
[2022-07-29 04:00] VITALS: BP 113/47
[2022-07-29] MEDS: THEOPHYLLINE ANHYDROUS 80 MG/15 ML 120ML PO SCH ×2 (05:27→15:11)
[2022-07-29] MEDS: MIDODRINE HCL 2.5MG TABLET PO SCH ×2 (05:27→14:53)
[2022-07-29] MEDS: GABAPENTIN 300MG CAPSULE PO SCH ×2 (05:27→14:53)
[2022-07-29] MEDS: CARISOPRODOL 350 MG TABLET PO SCH ×2 (05:27→14:54)
[2022-07-29] MEDS: OXYCODONE HCL 10MG TABLET SR 12HR PO SCH ×2 (05:27→14:54)
[2022-07-29 07:22] LABS: BASOPHILS % 0.5 % (0.0-2.0); EOSINOPHILS % 1.8 % (0.0-5.0); HEMATOCRIT. 25.3 % (42.0-52.0); HEMOGLOBIN. 8.3 g/dL (14.0-18.0); LYMPHOCYTES % 23.7 % (20.0-50.0); MEAN CORPUSCULAR HEMOGLOBIN 32.8 pg (28.0-32.0); MEAN CORPUSCULAR VOLUME 99.5 fL (80.0-94.0); MEAN PLATELET VOLUME 7.9 fl (7.4-10.4); MONOCYTES % 11.3 % (2.0-8.0); NEUTROPHILS % 62.7 % (40.0-76.0); PLATELET 414 x1000/uL (130-400); RED BLOOD CELL COUNT 2.55 mill/uL (4.7-6.1); RED CELL DISTRIBUTION WIDTH 18.7 % (11.6-14.6)
[2022-07-29 07:53] LABS: CHLORIDE 98 mEq/L (98-107)
[2022-07-29 08:00] VITALS: BP_SYST 107; BP_SYST 111; BP_DIAS 47; BP_DIAS 55
[2022-07-29] MEDS: AMLODIPINE 5MG TABLET PO SCH ×2 (09:00→09:36)
[2022-07-29] MEDS: CYANOCOBALAMIN 1000MCG TABLET PO SCH (09:35)
[2022-07-29] MEDS: ASCORBIC ACID 500 MG TABLET PO SCH (09:35)
[2022-07-29] MEDS: DOCUSATE SODIUM 100MG CAPSULE PO SCH (09:35)
[2022-07-29] MEDS: FOLIC ACID 1MG TABLET PO SCH (09:35)
[2022-07-29] MEDS: FERROUS SULFATE 325MG TABLET PO SCH ×2 (09:35→15:06)
[2022-07-29] MEDS: POLYETHYLENE GLYCOL 3350 (17GM) 1 DOSE PACK PO SCH (09:35)
[2022-07-29] MEDS: APIXABAN 5 MG TABLET PO SCH (09:35)
[2022-07-29] MEDS: NICOTINE 14MG PATCH TD SCH (09:36)
[2022-07-29] MEDS: MAGNESIUM OXIDE 400MG TABLET PO SCH (09:40)
[2022-07-29] MEDS: PANTOPRAZOLE SODIUM 40 MG/VIAL IV SCH (10:02)
[2022-07-29] MEDS ORDERED: HYDROCODONE/ACETAMINOPHEN 5/325MG TABLET PO PRN (14:45)
== END 2022-07-29 17:05 | DRG 308 ==
LOC: 7WST 15:50
PROVIDERS: ADMIT Internal Medicine Nephrology; ATTEND Internal Medicine Nephrology
DX: I44.2 Atrioventricular block, complete (principal); G06.2 Extradural and subdural abscess, unspecified; G93.41 Metabolic encephalopathy; I82.502 Chronic embolism and thrombosis of unspecified deep veins of left lower extremity; I82.431 Acute embolism and thrombosis of right popliteal vein; G97.64 Postprocedural seroma of a nervous system organ or structure following other procedure; G82.20 Paraplegia, unspecified; I49.5 Sick sinus syndrome; E55.9 Vitamin D deficiency, unspecified; F17.210 Nicotine dependence, cigarettes, uncomplicated; G89.4 Chronic pain syndrome; I10 Essential (primary) hypertension; I27.21 Secondary pulmonary arterial hypertension; J43.9 Emphysema, unspecified; R13.10 Dysphagia, unspecified; D53.9 Nutritional anemia, unspecified; I25.10 Atherosclerotic heart disease of native coronary artery without angina pectoris; I34.0 Nonrheumatic mitral (valve) insufficiency; N40.1 Benign prostatic hyperplasia with lower urinary tract symptoms; R33.8 Other retention of urine; T40.605A Adverse effect of unspecified narcotics, initial encounter; R91.8 Other nonspecific abnormal finding of lung field; E53.8 Deficiency of other specified B group vitamins; R26.9 Unspecified abnormalities of gait and mobility; E61.1 Iron deficiency; Z82.49 Family history of ischemic heart disease and other diseases of the circulatory system; Z87.820 Personal history of traumatic brain injury; Z91.81 History of falling; Z79.01 Long term (current) use of anticoagulants; Z79.899 Other long term (current) drug therapy; Z86.711 Personal history of pulmonary embolism; Z74.01 Bed confinement status; Y92.239 Unspecified place in hospital as the place of occurrence of the external cause
CPT/HCPCS: 36415; 80048; 83735; 85025; 87426; 93005; 97110; 97162; 97166; 97530; C9113; J1650; J2060; J3475; A4315

== ENCOUNTER 2022-08-22 16:12 | Inpatient (IN) | payer MEDICARE, OTHER ==
[~2022-08-22] VITALS: Ht 172.7 cm; Wt 93.4 kg
[2022-08-22] MEDS ORDERED: KETOROLAC 60MG/2ML VIAL IM ONE (17:15)
[2022-08-22 17:25] LABS: BASOPHILS % 0.5 % (0.0-2.0); EOSINOPHILS % 3.5 % (0.0-5.0); HEMATOCRIT. 27.4 % (42.0-52.0); LYMPHOCYTES % 40.2 % (20.0-50.0); MEAN CORPUSCULAR HEMOGLOBIN 30.1 pg (28.0-32.0); MEAN PLATELET VOLUME 6.7 fl (7.4-10.4); MONOCYTES % 8.6 % (2.0-8.0); NEUTROPHILS % 47.2 % (40.0-76.0); PLATELET 479 x1000/uL (130-400); RED BLOOD CELL COUNT 2.98 mill/uL (4.7-6.1); RED CELL DISTRIBUTION WIDTH 20.1 % (11.6-14.6)
[2022-08-22 17:33] LABS: CHLORIDE 105 mEq/L (98-107)
[2022-08-22] MEDS ORDERED: NALOXONE HCL 0.4MG/ML VIAL IV PRN (20:00)
[2022-08-22] MEDS ORDERED: ONDANSETRON HCL 4MG/2ML INJ IV PRN (20:00)
[2022-08-22] MEDS ORDERED: DIPHENHYDRAMINE 50MG/ML VIAL IV PRN (20:00)
[2022-08-22] MEDS ORDERED: MAGNESIUM/ALUMINUM HYDROXIDE/SIMETHICONE 30ML UDC PO PRN (20:00)
[2022-08-22] MEDS ORDERED: ACETAMINOPHEN 325MG TABLET PO PRN (20:00)
[2022-08-22] MEDS ORDERED: DOCUSATE SODIUM 100MG CAPSULE PO PRN (20:00)
[2022-08-22] MEDS: ENOXAPARIN 40MG/0.4ML SYR SUBCUT SCH (20:10)
[2022-08-22] MEDS: SODIUM CHLORIDE 0.9% 1,000 ML IV SCH (20:10)
[2022-08-22] MEDS: MORPHINE SULFATE 2 MG/ML CPJ (NOT FOR IM USE) IV PRN (20:19)
[2022-08-22 21:13] LABS: CHLORIDE 108 mEq/L (98-107)
[2022-08-23] MEDS: MORPHINE SULFATE 2 MG/ML CPJ (NOT FOR IM USE) IV PRN ×2 (00:20→09:21)
[2022-08-23] MEDS: HYDROCODONE/ACETAMINOPHEN 5/325MG TABLET PO PRN ×2 (02:30→09:21)
[2022-08-23 05:03] LABS: BASOPHILS % 0.9 % (0.0-2.0); EOSINOPHILS % 5.4 % (0.0-5.0); HEMATOCRIT. 23.6 % (42.0-52.0); HEMOGLOBIN. 7.8 g/dL (14.0-18.0); LYMPHOCYTES % 45.9 % (20.0-50.0); MEAN CORPUSCULAR HEMOGLOBIN 30.4 pg (28.0-32.0); MEAN CORPUSCULAR VOLUME 91.8 fL (80.0-94.0); MEAN PLATELET VOLUME 6.8 fl (7.4-10.4); MONOCYTES % 11.1 % (2.0-8.0); NEUTROPHILS % 36.7 % (40.0-76.0); PLATELET 419 x1000/uL (130-400); RED BLOOD CELL COUNT 2.57 mill/uL (4.7-6.1); RED CELL DISTRIBUTION WIDTH 20.1 % (11.6-14.6)
[2022-08-23 05:20] LABS: CREATINE KINASE 40 IU/L (39-308)
[2022-08-23 07:39] LABS: CLARITY URINE CLEAR (CLEAR); COLOR URINE DARK YELLOW (YELLOW); KETONES URINE TRACE (NEGATIVE); LEUKOCYTE ESTERASE URINE TRACE (NEGATIVE); NITRITE URINE NEGATIVE (NEGATIVE); OCCULT BLOOD URINE NEGATIVE (NEGATIVE); PH URINE 5.5 (4.5-8.0); PROTEIN URINE TRACE (NEGATIVE); SPECIFIC GRAVITY URINE 1.024 (1.005-1.030)
[2022-08-23] MEDS: TAMSULOSIN HCL 0.4MG SR CAPSULE PO SCH (09:00)
[2022-08-23] MEDS: FOLIC ACID 1MG TABLET PO SCH (09:00)
[2022-08-23] MEDS: AMLODIPINE 5MG TABLET PO SCH ×2 (09:00→23:56)
[2022-08-23] MEDS: SODIUM CHLORIDE 0.9% 1,000 ML IV SCH ×2 (09:20→22:40)
[2022-08-23] MEDS: GABAPENTIN 300MG CAPSULE PO SCH ×2 (10:00→17:47)
[2022-08-23 13:31] LABS: INR 1.1; PROTHROMBIN TIME 11.6 sec (9.6-11.0)
[2022-08-23] MEDS: CYCLOBENZAPRINE 10MG TABLET PO SCH ×2 (14:00→23:57)
[2022-08-23 16:00] VITALS: BP 123/54
[2022-08-23 17:18] VITALS: BP 123/54
[2022-08-23 20:00] VITALS: BP 129/48
[2022-08-23] MEDS: ENOXAPARIN 40MG/0.4ML SYR SUBCUT SCH (23:56)
[2022-08-23] MEDS: QUETIAPINE FUMARATE 25MG TABLET PO SCH (23:57)
[2022-08-24] VITALS: BP 126/59
[2022-08-24] MEDS: GABAPENTIN 300MG CAPSULE PO SCH ×3 (02:00→17:31)
[2022-08-24 04:00] VITALS: BP 132/62
[2022-08-24] MEDS: CYCLOBENZAPRINE 10MG TABLET PO SCH ×3 (05:55→21:55)
[2022-08-24 08:00] VITALS: BP 126/55
[2022-08-24] MEDS ORDERED: GADOTERATE MEGLUMINE 5 MMOL/10 ML VIAL IV ONE (09:20)
[2022-08-24] MEDS: MORPHINE SULFATE 2 MG/ML CPJ (NOT FOR IM USE) IV PRN ×3 (09:51→19:57)
[2022-08-24] MEDS: FOLIC ACID 1MG TABLET PO SCH (09:51)
[2022-08-24] MEDS: TAMSULOSIN HCL 0.4MG SR CAPSULE PO SCH (09:51)
[2022-08-24] MEDS: AMLODIPINE 5MG TABLET PO SCH ×2 (09:52→20:02)
[2022-08-24] MEDS ORDERED: CEFAZOLIN 1000MG PREMIX 50 ML IV SCH (15:00)
[2022-08-24] MEDS: SODIUM CHLORIDE 0.9% 1,000 ML IV SCH (15:12)
[2022-08-24 16:00] VITALS: BP 119/53
[2022-08-24] MEDS ORDERED: VANCOMYCIN 1500MG in DEXTROSE 5% WATER 250ML IV NR (17:00)
[2022-08-24 17:05] LABS: BASOPHILS % 0.8 % (0.0-2.0); EOSINOPHILS % 6.4 % (0.0-5.0); HEMOGLOBIN. 8.8 g/dL (14.0-18.0); LYMPHOCYTES % 41.9 % (20.0-50.0); MEAN CORPUSCULAR HEMOGLOBIN 30.2 pg (28.0-32.0); MEAN CORPUSCULAR VOLUME 92.3 fL (80.0-94.0); MEAN PLATELET VOLUME 6.8 fl (7.4-10.4); MONOCYTES % 8.6 % (2.0-8.0); NEUTROPHILS % 42.3 % (40.0-76.0); PLATELET 457 x1000/uL (130-400); RED BLOOD CELL COUNT 2.92 mill/uL (4.7-6.1); RED CELL DISTRIBUTION WIDTH 19.7 % (11.6-14.6)
[2022-08-24 17:18] LABS: CHLORIDE 107 mEq/L (98-107)
[2022-08-24] MEDS: CEFEPIME 2,000 MG in DEXT 5% WATER 100 ML IV SCH (17:28)
[2022-08-24] MEDS: ENOXAPARIN 40MG/0.4ML SYR SUBCUT SCH (19:58)
[2022-08-24 20:00] VITALS: BP 114/52
[2022-08-24] MEDS: QUETIAPINE FUMARATE 25MG TABLET PO SCH (20:01)
[2022-08-25] VITALS (10 sets, daily range): BP systolic 100–124; BP diastolic 48–72
[2022-08-25] MEDS: SODIUM CHLORIDE 0.9% 1,000 ML IV SCH ×2 (00:13→15:18)
[2022-08-25] MEDS: CEFEPIME 2,000 MG in DEXT 5% WATER 100 ML IV SCH ×3 (00:13→16:59)
[2022-08-25] MEDS: MORPHINE SULFATE 2 MG/ML CPJ (NOT FOR IM USE) IV PRN ×4 (00:18→12:41)
[2022-08-25] MEDS: GABAPENTIN 300MG CAPSULE PO SCH ×3 (02:13→17:38)
[2022-08-25] MEDS: CYCLOBENZAPRINE 10MG TABLET PO SCH ×3 (05:16→21:12)
[2022-08-25] MEDS: VANCOMYCIN 1G PREMIX 200 ML IV SCH ×2 (05:21→17:35)
[2022-08-25] MEDS ORDERED: VANCOMYCIN 750MG PREMIX 150 ML IV SCH (06:00)
[2022-08-25 06:42] LABS: BASOPHILS % 0.5 % (0.0-2.0); EOSINOPHILS % 5.5 % (0.0-5.0); HEMATOCRIT. 23.4 % (42.0-52.0); HEMOGLOBIN. 7.7 g/dL (14.0-18.0); MEAN CORPUSCULAR HEMOGLOBIN 30.1 pg (28.0-32.0); MEAN CORPUSCULAR VOLUME 91.1 fL (80.0-94.0); MEAN PLATELET VOLUME 6.9 fl (7.4-10.4); MONOCYTES % 9.9 % (2.0-8.0); NEUTROPHILS % 44.1 % (40.0-76.0); PLATELET 424 x1000/uL (130-400); RED BLOOD CELL COUNT 2.56 mill/uL (4.7-6.1); RED CELL DISTRIBUTION WIDTH 19.7 % (11.6-14.6)
[2022-08-25 07:33] LABS: CHLORIDE 109 mEq/L (98-107)
[2022-08-25] MEDS: AMLODIPINE 5MG TABLET PO SCH ×2 (08:33→21:00)
[2022-08-25] MEDS: TAMSULOSIN HCL 0.4MG SR CAPSULE PO SCH (08:33)
[2022-08-25] MEDS: FOLIC ACID 1MG TABLET PO SCH (08:33)
[2022-08-25] MEDS ORDERED: LIDOCAINE HCL/PF 1% 10 MG/ML 5ML VIAL ONE (12:45)
[2022-08-25] MEDS: HYDROCODONE/ACETAMINOPHEN 5/325MG TABLET PO PRN (15:23)
[2022-08-25] MEDS: HYDROMORPHONE HCL/PF 2MG/ML CPJ IV PRN (17:00)
[2022-08-25 20:49] LABS: HEMATOCRIT 26.3 % (42.0-52.0); HEMOGLOBIN 8.6 g/dL (14.0-18.0)
[2022-08-25 21:00] LABS: INR 1.1; PROTHROMBIN TIME 11.9 sec (9.6-11.0)
[2022-08-25] MEDS ORDERED: ZOLPIDEM TARTRATE 5MG TABLET PO PRN (21:00)
[2022-08-25] MEDS: QUETIAPINE FUMARATE 25MG TABLET PO SCH (21:12)
[2022-08-25] MEDS: ENOXAPARIN 40MG/0.4ML SYR SUBCUT SCH (21:13)
[2022-08-25] MEDS: HYDROCODONE/ACETAMINOPHEN 10/325MG TABLET PO PRN (21:13)
[2022-08-26] VITALS: BP 103/59
[2022-08-26] MEDS: CEFEPIME 2,000 MG in DEXT 5% WATER 100 ML IV SCH ×3 (01:25→16:27)
[2022-08-26] MEDS: HYDROCODONE/ACETAMINOPHEN 10/325MG TABLET PO PRN ×4 (01:26→21:22)
[2022-08-26] MEDS: GABAPENTIN 300MG CAPSULE PO SCH ×2 (01:26→10:09)
[2022-08-26] MEDS: SODIUM CHLORIDE 0.9% 1,000 ML IV SCH ×2 (01:31→16:28)
[2022-08-26] MEDS: HYDROMORPHONE HCL/PF 2MG/ML CPJ IV PRN ×2 (03:52→10:10)
[2022-08-26 04:00] VITALS: BP 109/52
[2022-08-26] MEDS: VANCOMYCIN 1G PREMIX 200 ML IV SCH (05:47)
[2022-08-26] MEDS: CYCLOBENZAPRINE 10MG TABLET PO SCH ×3 (05:47→21:15)
[2022-08-26 06:31] LABS: CHLORIDE 110 mEq/L (98-107)
[2022-08-26 06:47] LABS: VANCOMYCIN TROUGH 16.4 ug/mL (5.0-10.0)
[2022-08-26 08:08] VITALS: BP 118/52
[2022-08-26] MEDS: AMLODIPINE 5MG TABLET PO SCH ×2 (08:45→21:16)
[2022-08-26] MEDS: FOLIC ACID 1MG TABLET PO SCH (08:45)
[2022-08-26] MEDS: TAMSULOSIN HCL 0.4MG SR CAPSULE PO SCH (08:45)
[2022-08-26] MEDS: MAGNESIUM GLUCONATE 500MG TABLET PO SCH (10:09)
[2022-08-26] MEDS ORDERED: HYDROMORPHONE HCL 2MG TABLET PO PRN ×2 (11:30→12:00)
[2022-08-26 11:54] VITALS: BP 113/54
[2022-08-26] MEDS ORDERED: MAGNESIUM 2 G PREMIX 50 ML IV NR (12:00)
[2022-08-26 15:47] VITALS: BP 109/60
[2022-08-26 20:00] VITALS: BP 111/66
[2022-08-26] MEDS ORDERED: VANCOMYCIN 750MG PREMIX 150 ML IV SCH (21:00)
[2022-08-26] MEDS: QUETIAPINE FUMARATE 25MG TABLET PO SCH (21:16)
[2022-08-26] MEDS: ENOXAPARIN 40MG/0.4ML SYR SUBCUT SCH (21:17)
[2022-08-27] VITALS: BP 94/49
[2022-08-27] MEDS: CEFEPIME 2,000 MG in DEXT 5% WATER 100 ML IV SCH ×2 (01:23→08:57)
[2022-08-27] MEDS: HYDROCODONE/ACETAMINOPHEN 10/325MG TABLET PO PRN ×2 (03:06→08:56)
[2022-08-27 04:00] VITALS: BP 110/63
[2022-08-27] MEDS: CYCLOBENZAPRINE 10MG TABLET PO SCH ×2 (06:00→13:26)
[2022-08-27] MEDS: SODIUM CHLORIDE 0.9% 1,000 ML IV SCH (06:47)
[2022-08-27 07:38] LABS: CHLORIDE 109 mEq/L (98-107)
[2022-08-27 08:00] VITALS: BP 109/50
[2022-08-27 08:10] LABS: BASOPHILS % 0.8 % (0.0-2.0); HEMATOCRIT. 27.4 % (42.0-52.0); HEMOGLOBIN. 8.7 g/dL (14.0-18.0); LYMPHOCYTES % 38.6 % (20.0-50.0); MEAN CORPUSCULAR HEMOGLOBIN 30.1 pg (28.0-32.0); MEAN CORPUSCULAR VOLUME 94.5 fL (80.0-94.0); MONOCYTES % 9.9 % (2.0-8.0); NEUTROPHILS % 44.7 % (40.0-76.0); PLATELET 369 x1000/uL (130-400); RED CELL DISTRIBUTION WIDTH 19.6 % (11.6-14.6)
[2022-08-27] MEDS: MAGNESIUM GLUCONATE 500MG TABLET PO SCH (08:54)
[2022-08-27] MEDS: TAMSULOSIN HCL 0.4MG SR CAPSULE PO SCH (08:55)
[2022-08-27] MEDS: FOLIC ACID 1MG TABLET PO SCH (08:55)
[2022-08-27] MEDS: AMLODIPINE 5MG TABLET PO SCH (08:55)
[2022-08-27 11:26] VITALS: BP 109/50
[2022-08-27 12:00] VITALS: BP 137/61
== END 2022-08-27 17:52 | disposition home health service (06) | DRG 552 ==
LOC: ER 16:12 → 6EST 19:28 → EDBEDREQ 19:31 → ENRESERV 08-23 15:30 → 7WST 08-24 07:11
PROVIDERS: ADMIT Internal Medicine Nephrology; ATTEND Internal Medicine Nephrology
PROC: 30233N1 Transfusion of Nonautologous Red Blood Cells into Peripheral Vein, Percutaneous Approach (ICD-10-PCS; principal; 2022-08-25)
PROC: 05HY33Z Insertion of Infusion Device into Upper Vein, Percutaneous Approach (ICD-10-PCS; 2022-08-25)
PROC: B54MZZA Ultrasonography of Right Upper Extremity Veins, Guidance (ICD-10-PCS; 2022-08-25)
DX: M46.44 Discitis, unspecified, thoracic region (principal); I44.2 Atrioventricular block, complete; I82.502 Chronic embolism and thrombosis of unspecified deep veins of left lower extremity; G95.29 Other cord compression; M46.24 Osteomyelitis of vertebra, thoracic region; G82.20 Paraplegia, unspecified; M48.02 Spinal stenosis, cervical region; D64.9 Anemia, unspecified; Z20.822 Contact with and (suspected) exposure to COVID-19; I49.5 Sick sinus syndrome; I10 Essential (primary) hypertension; J43.9 Emphysema, unspecified; E83.42 Hypomagnesemia; G89.29 Other chronic pain; F15.10 Other stimulant abuse, uncomplicated; F14.10 Cocaine abuse, uncomplicated; F17.200 Nicotine dependence, unspecified, uncomplicated; Z79.899 Other long term (current) drug therapy; Z76.5 Malingerer [conscious simulation]; Z95.0 Presence of cardiac pacemaker; Z86.711 Personal history of pulmonary embolism; Z98.1 Arthrodesis status; Z82.49 Family history of ischemic heart disease and other diseases of the circulatory system
CPT/HCPCS: 36415; 36573; 71045; 72146; 72147; 72148; 80048; 80053; 80202; 81003; 82550; 83735; 84443; 84484; 85014; 85018; 85025; 85049; 85651; 86850; 86900; 86920; 87426; 93005; 93970; 97110; 97162; 97166; 97530; 99291; A6261; A9577; C1725; J0690; J0692; J1170; J1650; J1885; J2270; J3370; J3475; J3490; J7060; P9016

== ENCOUNTER 2022-09-17 06:20 | Emergency (ER) | payer MEDICARE, OTHER ==
[~2022-09-17] VITALS: Ht 198.1 cm; Wt 98.0 kg
[2022-09-17] MEDS ORDERED: MORPHINE SULFATE 4 MG/ML CPJ (NOT FOR IM USE) IV STA (06:31)
[2022-09-17] MEDS ORDERED: KETOROLAC 30MG/ML VIAL IV ONE (06:45)
[2022-09-17] MEDS ORDERED: CEFEPIME 2,000 MG in DEXT 5% WATER 100 ML IV SCH (07:15)
[2022-09-17] MEDS ORDERED: DAPTOMYCIN 500 MG in SODIUM CHLORIDE 0.9% 50 ML IV SCH (07:15)
[2022-09-17 07:20] LABS: CHLORIDE 101 mEq/L (98-107)
[2022-09-17 07:30] LABS: BASOPHILS % 0.9 % (0.0-2.0); EOSINOPHILS % 2.1 % (0.0-5.0); HEMATOCRIT. 35.8 % (42.0-52.0); HEMOGLOBIN. 11.6 g/dL (14.0-18.0); LYMPHOCYTES % 39.9 % (20.0-50.0); MEAN CORPUSCULAR HEMOGLOBIN 29.5 pg (28.0-32.0); MEAN CORPUSCULAR VOLUME 90.7 fL (80.0-94.0); MEAN PLATELET VOLUME 8.2 fl (7.4-10.4); MONOCYTES % 6.6 % (2.0-8.0); NEUTROPHILS % 50.5 % (40.0-76.0); PLATELET 223 x1000/uL (130-400); RED BLOOD CELL COUNT 3.94 mill/uL (4.7-6.1)
[2022-09-17 08:01] LABS: PLATELET ESTIMATE NORMAL
[2022-09-17] MEDS ORDERED: HYDROCODONE/ACETAMINOPHEN 10/325MG TABLET PO ONE (10:30)
[2022-09-17] MEDS ORDERED: HYDROCODONE/ACETAMINOPHEN 10/325MG TABLET PO NR (17:00)
[2022-09-17] MEDS: CEFEPIME 2,000 MG in DEXT 5% WATER 100 ML IV SCH ×2 (17:19→23:22)
[2022-09-17 23:30] VITALS: BP 106/56
== END 2022-09-18 01:22 | disposition home or self-care (01) ==
LOC: ER 06:20
DX: M79.10 Myalgia, unspecified site (principal); I10 Essential (primary) hypertension; J44.9 Chronic obstructive pulmonary disease, unspecified; Z87.828 Personal history of other (healed) physical injury and trauma; Z20.822 Contact with and (suspected) exposure to COVID-19; Z86.711 Personal history of pulmonary embolism; Z98.1 Arthrodesis status; Z79.01 Long term (current) use of anticoagulants
CPT/HCPCS: 36415; 36573; 71045; 80053; 85025; 87426; 96365; 96366; 96368; 96375; 99285; C1725; C1769; C9803; J0692; J0878; J1885; J2270; J7060

== ENCOUNTER 2022-10-16 15:59 | Emergency (ER) | payer MEDICARE, OTHER ==
[~2022-10-16] VITALS: Ht 198.1 cm; Wt 100.0 kg
[2022-10-16 16:04] VITALS: BP 162/102
[2022-10-16] MEDS ORDERED: DAPTOMYCIN 500 MG in SODIUM CHLORIDE 0.9% 50 ML IV STA (16:17)
[2022-10-16] MEDS ORDERED: CEFEPIME 2,000 MG in DEXT 5% WATER 100 ML IV SCH (16:30)
[2022-10-16] MEDS ORDERED: IBUPROFEN 600MG TABLET PO ONE (17:45)
[2022-10-16 19:07] LABS: BASOPHILS % 1.3 % (0.0-2.0); EOSINOPHILS % 3.4 % (0.0-5.0); HEMOGLOBIN. 12.8 g/dL (14.0-18.0); LYMPHOCYTES % 27.1 % (20.0-50.0); MEAN CORPUSCULAR HEMOGLOBIN 31.8 pg (28.0-32.0); MEAN CORPUSCULAR VOLUME 96.6 fL (80.0-94.0); MEAN PLATELET VOLUME 8.7 fl (7.4-10.4); MONOCYTES % 5.2 % (2.0-8.0); PLATELET 205 x1000/uL (130-400); RED BLOOD CELL COUNT 4.03 mill/uL (4.7-6.1); RED CELL DISTRIBUTION WIDTH 28.4 % (11.6-14.6)
[2022-10-16 19:12] LABS: CHLORIDE 99 mEq/L (98-107)
[2022-10-16 19:39] LABS: PLATELET ESTIMATE NORMAL
== END 2022-10-17 03:11 | disposition home or self-care (01) ==
LOC: ER 15:59
DX: G06.1 Intraspinal abscess and granuloma (principal); G89.29 Other chronic pain; I48.91 Unspecified atrial fibrillation; J44.9 Chronic obstructive pulmonary disease, unspecified; I10 Essential (primary) hypertension; Z79.899 Other long term (current) drug therapy
CPT/HCPCS: 36415; 73060; 80053; 85025; 85651; 87040; 96365; 96367; 99284; J0692; J0878; J7060

== ENCOUNTER 2024-05-28 09:35 | Inpatient (IN) | payer MEDICARE, MEDICAID ==
[~2024-05-28] VITALS: Ht 198.1 cm; Wt 79.4 kg
[~2024-05-28 09:35] MED LIST changes: -GABA300S PO; +GABA300S4 PO
[2024-05-28] MEDS: SODIUM CHLORIDE 0.9% 1,000 ML IV ONE (11:55)
[2024-05-28] MEDS: ONDANSETRON HCL 4MG/2ML INJ IV STA (11:55)
[2024-05-28] MEDS: MORPHINE SULFATE 4 MG/ML INJ (FOR IV/IM USE) IV STA (11:55)
[2024-05-28 12:09] LABS: BASOPHILS % 0.4 % (0.0-2.0); EOSINOPHILS % 0.5 % (0.0-5.0); HEMATOCRIT. 40.4 % (42.0-52.0); HEMOGLOBIN. 13.4 g/dL (14.0-18.0); LYMPHOCYTES % 16.6 % (20.0-50.0); MEAN CORPUSCULAR HEMOGLOBIN 39.6 pg (28.0-32.0); MEAN CORPUSCULAR HGB CONC 33.3 g/dL (31.0-37.0); MEAN CORPUSCULAR VOLUME 119.1 fL (80.0-94.0); MEAN PLATELET VOLUME 9.3 fl (7.4-10.4); MONOCYTES % 9.7 % (2.0-8.0); NEUTROPHILS % 72.8 % (40.0-76.0); PLATELET 96 x1000/uL (130-400); RED BLOOD CELL COUNT 3.39 mill/uL (4.7-6.1); RED CELL DISTRIBUTION WIDTH 16.7 % (11.6-14.6); WHITE BLOOD COUNT 6.1 x1000/uL (4.5-11.0)
[2024-05-28 12:12] LABS: ADD RBC MORPHOLOGY YES; DIFFERENTIAL COMMENT 1
[2024-05-28 12:23] LABS: INR 0.9; PROTHROMBIN TIME 10.3 sec (9.6-11.0)
[2024-05-28 12:24] LABS: CARBON DIOXIDE 20 mEq/L (21-32); CHLORIDE 103 mEq/L (98-107); POTASSIUM 4.6 mEq/L (3.5-5.1); SODIUM 135 mEq/L (136-145)
[2024-05-28 12:25] LABS: CALCIUM 9.4 mg/dL (8.7-10.4)
[2024-05-28 12:29] LABS: CREATININE 0.8 mg/dL (0.6-1.3)
[2024-05-28 12:30] LABS: GLUCOSE 66 mg/dL (70-105); UREA NITROGEN BLOOD 9 mg/dL (9-23)
[2024-05-28 13:14] LABS: PLATELET ESTIMATE SLIGHTLY DECREASED
[2024-05-28 13:15] LABS: ANISOCYTOSIS 1+
[2024-05-28] MEDS: DEXTROSE 50% WATER 50ML SYRINGE IV ONE (14:43)
[2024-05-28] MEDS ORDERED: ACETAMINOPHEN 325MG TABLET PO PRN ×2 (15:45)
[2024-05-28] MEDS ORDERED: DOCUSATE SODIUM 100MG CAPSULE PO PRN (15:45)
[2024-05-28] MEDS ORDERED: CLONIDINE 0.1MG TABLET PO PRN (15:45)
[2024-05-28] MEDS ORDERED: IPRATROPIUM/ALBUTEROL 0.5-3(2.5)MG/3ML NEB HHN PRN (15:45)
[2024-05-28] MEDS ORDERED: ONDANSETRON HCL 4MG/2ML INJ IV PRN (15:45)
[2024-05-28] MEDS ORDERED: GUAIFENESIN 200MG/10ML SUGAR FREE UDC PO PRN (15:45)
[2024-05-28] MEDS: KETOROLAC 15MG/ML VIAL IV PRN (16:07)
[2024-05-28] MEDS ORDERED: NALOXONE HCL 0.4MG/ML VIAL IV PRN (16:45)
[2024-05-28] MEDS: GABAPENTIN 300MG CAPSULE PO SCH (17:45)
[2024-05-28] MEDS: DEXT 5%/0.45% NACL 1000ML 1,000 ML IV SCH (17:50)
[2024-05-28] MEDS: HYDROCODONE/ACETAMINOPHEN 5/325MG TABLET PO PRN (18:03)
[2024-05-28 18:57] LABS: IRON 36 ug/dL (65-175)
[2024-05-28 18:59] LABS: PHOSPHORUS 3.3 mg/dL (2.5-4.9)
[2024-05-28 19:00] LABS: TOTAL IRON BINDING CAPACITY 235 ug/dl (250-425)
[2024-05-28 19:03] LABS: FERRITIN 242 ng/mL (22-322); FOLIC ACID (FOLATE) SERUM 7.59 ng/mL (>5.38)
[2024-05-28 19:04] LABS: VITAMIN B12 SERUM 355 pg/mL (211-911)
[2024-05-28 20:00] VITALS: BP 137/64; PULSE 57; RESP 16; TEMP 36.6696; O2SAT 100
[2024-05-28] MEDS: ENOXAPARIN 40MG/0.4ML SYR SUBCUT SCH (20:21)
[2024-05-28] MEDS: QUETIAPINE FUMARATE 25MG TABLET PO SCH (20:21)
[2024-05-28] MEDS: AMLODIPINE 5MG TABLET PO SCH (20:21)
[2024-05-28] MEDS: IPRATROPIUM/ALBUTEROL 0.5-3(2.5)MG/3ML NEB NEB SCH (20:49)
[2024-05-28] MEDS: BUDESONIDE 0.5MG/2ML NEB HHN SCH (20:49)
[2024-05-28 20:50] VITALS: PULSE 59; RESP 18; O2SAT 96
[2024-05-28] MEDS ORDERED: MEDICATION NOT ON FORMULARY EA (Fluticasone/Salmeterol (Advair 250-50 Diskus) 1 PUFF) INH SCH (21:00)
[2024-05-28 23:00] VITALS: BP 91/48; PULSE 64; RESP 16; TEMP 35.89176; O2SAT 100
[2024-05-28 23:41] VITALS: BP 91/48; PULSE 64; RESP 16; TEMP 36.4736
[2024-05-29] VITALS (8 sets, daily range): BP systolic 96–131; BP diastolic 50–66; PULSE 45–72; RESP 16–22; TEMP 35.5584–36.61404; O2SAT 95–100
[2024-05-29 01:22] LABS: CREATINE KINASE MB FRACTION < 0.5 ng/mL (0.5-3.6)
[2024-05-29 01:23] LABS: TROPONIN I HIGH SENSITIVITY 14 ng/L (3.0-53)
[2024-05-29] MEDS ORDERED: QUET200T PO (01:30)
[2024-05-29 01:50] LABS: HEPATITIS C AB NON REACTIVE (Neg) (Negative)
[2024-05-29 04:47] LABS: HEPATITIS B SURFACE ANTIGEN NEGATIVE (Negative)
[2024-05-29 08:41] LABS: CHLORIDE 103 mEq/L (98-107); POTASSIUM 3.9 mEq/L (3.5-5.1); SODIUM 135 mEq/L (136-145)
[2024-05-29 08:42] LABS: CARBON DIOXIDE 26 mEq/L (21-32)
[2024-05-29 08:43] LABS: CALCIUM 8.7 mg/dL (8.7-10.4)
[2024-05-29 08:45] LABS: HEMATOCRIT 35.7 % (42.0-52.0); HEMOGLOBIN 11.6 g/dL (14.0-18.0); MEAN CORPUSCULAR HEMOGLOBIN 37.7 pg (28.0-32.0); MEAN CORPUSCULAR HGB CONC 32.6 g/dL (31.0-37.0); MEAN CORPUSCULAR VOLUME 115.5 fL (80.0-94.0); PLATELET 96 x1000/uL (130-400); RED BLOOD CELL COUNT 3.09 mill/uL (4.7-6.1); RED CELL DISTRIBUTION WIDTH 16.2 % (11.6-14.6); WHITE BLOOD COUNT 3.8 x1000/uL (4.5-11.0)
[2024-05-29 08:46] LABS: CREATINE KINASE MB FRACTION < 0.5 ng/mL (0.5-3.6); TROPONIN I HIGH SENSITIVITY 15 ng/L (3.0-53)
[2024-05-29 08:47] LABS: GLUCOSE 106 mg/dL (70-105); UREA NITROGEN BLOOD 13 mg/dL (9-23)
[2024-05-29] MEDS ORDERED: GABAPENTIN 250 MG/5 ML PO SCH (09:00)
[2024-05-29] MEDS: FOLIC ACID 1MG TABLET PO SCH (09:16)
[2024-05-29] MEDS: TAMSULOSIN HCL 0.4MG SR CAPSULE PO SCH (09:16)
[2024-05-29] MEDS: THIAMINE HCL 100MG TABLET PO SCH (09:16)
[2024-05-29] MEDS: MAGNESIUM 2 G PREMIX 50 ML IV SCH (09:20)
[2024-05-29] MEDS ORDERED: METHOCARBAMOL 500MG TABLET PO PRN (12:45)
[2024-05-29] MEDS: HYDROCODONE/ACETAMINOPHEN 10/325MG TABLET PO PRN (13:18)
[2024-05-30] VITALS (8 sets, daily range): BP systolic 94–117; BP diastolic 48–64; PULSE 42–80; RESP 18–22; TEMP 35.5584–37.2252; O2SAT 97–99
[2024-05-30 07:17] LABS: HEMATOCRIT 29.6 % (42.0-52.0); HEMOGLOBIN 10.1 g/dL (14.0-18.0); MEAN CORPUSCULAR HEMOGLOBIN 39.1 pg (28.0-32.0); MEAN CORPUSCULAR HGB CONC 34.2 g/dL (31.0-37.0); MEAN CORPUSCULAR VOLUME 114.4 fL (80.0-94.0); PLATELET 96 x1000/uL (130-400); RED BLOOD CELL COUNT 2.59 mill/uL (4.7-6.1); RED CELL DISTRIBUTION WIDTH 15.5 % (11.6-14.6); WHITE BLOOD COUNT 3.2 x1000/uL (4.5-11.0)
[2024-05-30 07:28] LABS: CARBON DIOXIDE 27 mEq/L (21-32); CHLORIDE 103 mEq/L (98-107); POTASSIUM 3.6 mEq/L (3.5-5.1); SODIUM 136 mEq/L (136-145)
[2024-05-30 07:30] LABS: CALCIUM 8.7 mg/dL (8.7-10.4)
[2024-05-30 07:34] LABS: CREATININE 0.9 mg/dL (0.6-1.3); GLUCOSE 118 mg/dL (70-105)
[2024-05-30 07:35] LABS: UREA NITROGEN BLOOD 15 mg/dL (9-23)
[2024-05-30 08:54] LABS: CLARITY URINE CLOUDY (CLEAR); COLOR URINE YELLOW (YELLOW); GLUCOSE URINE NEGATIVE (NEGATIVE); KETONES URINE NEGATIVE (NEGATIVE); LEUKOCYTE ESTERASE URINE 1+ (NEGATIVE); NITRITE URINE POSITIVE (NEGATIVE); OCCULT BLOOD URINE TRACE (NEGATIVE); PH URINE 5.5 (4.5-8.0); PROTEIN URINE NEGATIVE (NEGATIVE); SPECIFIC GRAVITY URINE 1.011 (1.005-1.030); UROBILINOGEN URINE 0.2 E.U./dL (0.2-1.0)
[2024-05-30] MEDS ORDERED: FOLIC ACID 1MG TABLET PO SCH (09:00)
[2024-05-30 09:25] LABS: *AMPHETAMINES SCREEN URINE PRESUMPTIVE POSITIVE (NEGATIVE); *BENZODIAZEPINES SCREEN URINE NEGATIVE (NEGATIVE)
[2024-05-30 09:26] LABS: *BARBITURATES SCREEN URINE NEGATIVE (NEGATIVE); *COCAINE SCREEN URINE PRESUMPTIVE POSITIVE (NEGATIVE); CANNABINOID URINE SCREEN NEGATIVE (NEGATIVE); ECSTASY MDMA SCREEN URINE NEGATIVE (NEGATIVE); METHADONE URINE SCREEN NEGATIVE (NEGATIVE); OPIATES URINE SCREEN PRESUMPTIVE POSITIVE (NEGATIVE); PHENCYCLIDINE URINE SCREEN NEGATIVE (NEGATIVE)
[2024-05-30 09:55] LABS: BACTERIA URINE 3+; RBC URINE 0-2 /hpf (0-2); SQUAMOUS EPITHELIAL CELL URINE 1+ /lpf (RARE/1+); YEAST URINE NONE SEEN
[2024-05-30] MEDS ORDERED: METOCLOPRAMIDE HCL 10MG/2ML VIAL IV SCH (10:15)
[2024-05-31] VITALS (8 sets, daily range): BP systolic 126–163; BP diastolic 60–90; PULSE 46–86; RESP 16–20; TEMP 36.3918–36.61404; O2SAT 93–100
[2024-05-31 13:09] LABS: HEMOGLOBIN 10.6 g/dL (14.0-18.0); MEAN CORPUSCULAR HEMOGLOBIN 37.2 pg (28.0-32.0); MEAN CORPUSCULAR HGB CONC 32.1 g/dL (31.0-37.0); PLATELET 112 x1000/uL (130-400); RED BLOOD CELL COUNT 2.85 mill/uL (4.7-6.1); RED CELL DISTRIBUTION WIDTH 15.9 % (11.6-14.6)
[2024-05-31 13:18] LABS: CHLORIDE 108 mEq/L (98-107); POTASSIUM 4.4 mEq/L (3.5-5.1); SODIUM 139 mEq/L (136-145)
[2024-05-31 13:19] LABS: CALCIUM 9.2 mg/dL (8.7-10.4); CARBON DIOXIDE 27 mEq/L (21-32)
[2024-05-31 13:24] LABS: CREATININE 0.9 mg/dL (0.6-1.3); GLUCOSE 111 mg/dL (70-105); UREA NITROGEN BLOOD 11 mg/dL (9-23)
[2024-05-31] MEDS: CARISOPRODOL 350 MG TABLET PO PRN (16:08)
[2024-06-01] VITALS (8 sets, daily range): BP systolic 107–131; BP diastolic 46–71; PULSE 42–82; RESP 16–20; TEMP 36.00288–37.00296; O2SAT 98–100
[2024-06-01 06:36] LABS: HEMATOCRIT 29.2 % (42.0-52.0); HEMOGLOBIN 9.6 g/dL (14.0-18.0); MEAN CORPUSCULAR HEMOGLOBIN 37.7 pg (28.0-32.0); MEAN CORPUSCULAR HGB CONC 32.8 g/dL (31.0-37.0); MEAN CORPUSCULAR VOLUME 114.7 fL (80.0-94.0); PLATELET 121 x1000/uL (130-400); RED BLOOD CELL COUNT 2.55 mill/uL (4.7-6.1); RED CELL DISTRIBUTION WIDTH 15.3 % (11.6-14.6); WHITE BLOOD COUNT 2.7 x1000/uL (4.5-11.0)
[2024-06-01 06:42] LABS: CARBON DIOXIDE 26 mEq/L (21-32); CHLORIDE 106 mEq/L (98-107); SODIUM 136 mEq/L (136-145)
[2024-06-01 06:44] LABS: CALCIUM 8.8 mg/dL (8.7-10.4)
[2024-06-01 06:47] LABS: CREATININE 0.8 mg/dL (0.6-1.3)
[2024-06-01 06:48] LABS: GLUCOSE 102 mg/dL (70-105)
[2024-06-01 06:49] LABS: UREA NITROGEN BLOOD 8 mg/dL (9-23)
[2024-06-02] VITALS: BP 99/56; PULSE 43; RESP 19; TEMP 36.61404; O2SAT 96
[2024-06-02 04:00] VITALS: BP 132/69; PULSE 44; RESP 19; TEMP 36.22512; O2SAT 98
[2024-06-02 07:09] LABS: CHLORIDE 107 mEq/L (98-107); POTASSIUM 4.5 mEq/L (3.5-5.1); SODIUM 140 mEq/L (136-145)
[2024-06-02 07:10] LABS: CARBON DIOXIDE 28 mEq/L (21-32)
[2024-06-02 07:15] LABS: GLUCOSE 120 mg/dL (70-105); UREA NITROGEN BLOOD 10 mg/dL (9-23)
[2024-06-02 07:53] LABS: HEMATOCRIT 30.4 % (42.0-52.0); HEMOGLOBIN 10.2 g/dL (14.0-18.0); MEAN CORPUSCULAR HEMOGLOBIN 38.7 pg (28.0-32.0); MEAN CORPUSCULAR HGB CONC 33.5 g/dL (31.0-37.0); MEAN CORPUSCULAR VOLUME 115.3 fL (80.0-94.0); PLATELET 136 x1000/uL (130-400); RED BLOOD CELL COUNT 2.64 mill/uL (4.7-6.1); RED CELL DISTRIBUTION WIDTH 15.5 % (11.6-14.6); WHITE BLOOD COUNT 2.6 x1000/uL (4.5-11.0)
[2024-06-02 08:00] VITALS: BP 157/79; PULSE 45; RESP 18; TEMP 37.05852; O2SAT 98
[2024-06-02 12:00] VITALS: BP 148/79; PULSE 50; RESP 20; TEMP 36.61404; O2SAT 98
[2024-06-02 16:00] VITALS: BP 128/80; PULSE 56; RESP 18; TEMP 36.72516; O2SAT 100
[2024-06-02] MEDS ORDERED: HYDR-4009 PO ×2 (17:13→17:21)
[2024-06-02] MEDS ORDERED: FOLI-43 PO ×2 (17:13→17:34)
[2024-06-02] MEDS ORDERED: CARI350T27 PO ×2 (17:13→17:21)
[2024-06-02] MEDS ORDERED: IPRA3AMP9 NEB ×2 (17:13→17:34)
[2024-06-02] MEDS ORDERED: FLUT1DIS3 INH ×2 (17:13→17:34)
[2024-06-02] MEDS ORDERED: ALBU18HF2 IH ×2 (17:13→17:34)
[2024-06-02] MEDS ORDERED: THIA100T88 MT (17:13)
[2024-06-02] MEDS ORDERED: TAMS-11 PO (17:34)
[2024-06-02] MEDS ORDERED: THIA100T88 PO (17:34)
[2024-06-02 20:00] VITALS: BP 131/77; PULSE 47; RESP 19; TEMP 36.33624; O2SAT 98
[2024-06-03] VITALS: BP 109/62; PULSE 49; RESP 19; TEMP 36.50292; O2SAT 98
[2024-06-03 04:00] VITALS: PULSE 46; RESP 19; TEMP 36.61404; O2SAT 98
[2024-06-03] MEDS ORDERED: NALOXONE HCL 0.4MG/ML VIAL IV PRN (07:15)
[2024-06-03 11:59] VITALS: BP 138/80; PULSE 62; TEMP 97.5; O2SAT 100
[2024-06-03 12:00] VITALS: BP 138/80; PULSE 62; RESP 19; TEMP 36.3918; TEMP 36.39180; O2SAT 100
== END 2024-06-03 12:55 | disposition home health service (06) | DRG 551 ==
LOC: ER 09:59 → EDBEDREQ 14:47 → EDBEDREQTM 14:47 → 5WST 15:07 → 7WST 21:55
PROVIDERS: ADMIT Internal Medicine; ATTEND Internal Medicine
DX: M48.061 Spinal stenosis, lumbar region without neurogenic claudication (principal); G82.50 Quadriplegia, unspecified; I44.2 Atrioventricular block, complete; M47.12 Other spondylosis with myelopathy, cervical region; M47.14 Other spondylosis with myelopathy, thoracic region; M51.04 Intervertebral disc disorders with myelopathy, thoracic region; I50.22 Chronic systolic (congestive) heart failure; I11.0 Hypertensive heart disease with heart failure; M24.28 Disorder of ligament, vertebrae; I48.91 Unspecified atrial fibrillation; Z86.61 Personal history of infections of the central nervous system; M48.02 Spinal stenosis, cervical region; J43.9 Emphysema, unspecified; G89.4 Chronic pain syndrome; E53.8 Deficiency of other specified B group vitamins; E61.1 Iron deficiency; M48.04 Spinal stenosis, thoracic region; F15.10 Other stimulant abuse, uncomplicated; F11.10 Opioid abuse, uncomplicated; F14.10 Cocaine abuse, uncomplicated; F17.210 Nicotine dependence, cigarettes, uncomplicated; Z79.51 Long term (current) use of inhaled steroids; Z82.49 Family history of ischemic heart disease and other diseases of the circulatory system; Z86.718 Personal history of other venous thrombosis and embolism; Z86.711 Personal history of pulmonary embolism
CPT/HCPCS: 36415; 70490; 71045; 72141; 72146; 72148; 74230; 80048; 80305; 81003; 82553; 82607; 82728; 82746; 83540; 83550; 83735; 83880; 84100; 84484; 85025; 85027; 85044; 85651; 86705; 87340; 92610; 92611; 93005; 93306; 93970; 94640; 97163; 97166; 99285; J1650; J1885; J2270; J2405; J3475; J7030; J7626